=== PATIENT | male | born 1950 | race Caucasian/White ===

== ENCOUNTER 2017-04-30 10:02 | Day surgery (SDC) | payer MEDICARE ==
[~2017-04-30] VITALS: Ht 172.7 cm; Wt 70.5 kg
[~2017-04-30 10:02] MED LIST: SODIUM CHLOR 0.9% 1000 ML IV SCH
[2017-04-30 10:25] VITALS: BP 129/74; PULSE 90; RESP 18; TEMP 98.3; O2SAT 91
[2017-04-30] MEDS ORDERED: UMEC1AER INH (10:38)
[2017-04-30] MEDS ORDERED: VENTAER INH (10:38)
[2017-04-30] MEDS ORDERED: OXYC1TAB63 PO (10:38)
[2017-04-30] MEDS ORDERED: AMIT50TA3 PO (10:38)
[2017-04-30] MEDS ORDERED: MORP1TAB24 PO (10:38)
[2017-04-30] MEDS ORDERED: DEXA4TAB PO (10:38)
[2017-04-30] MEDS ORDERED: OXYC-395 PO (10:38)
[2017-04-30] MEDS ORDERED: LIDOCAINE 1%/EPINEPHrine 1:100,000 SOLN 20 ML VIAL ONE (12:02)
[2017-04-30] MEDS ORDERED: fentaNYL CITRATE 250 MCG/5 ML AMP ONE (12:09)
[2017-04-30] MEDS ORDERED: MIDAZOLAM HCL 2 MG/2 ML VIAL ONE (12:09)
[2017-04-30 12:40] VITALS: BP 97/50; PULSE 63; RESP 18; TEMP 97.7; O2SAT 91
[2017-04-30 12:55] VITALS: BP 107/58; PULSE 84; RESP 18; O2SAT 97
[2017-04-30 13:25] VITALS: BP 124/65; PULSE 16; RESP 20; O2SAT 96
[2017-04-30 13:55] VITALS: BP 122/75; PULSE 96; RESP 18; O2SAT 95
[2017-04-30 14:25] VITALS: BP 116/58; PULSE 102; RESP 20; O2SAT 92
--- NOTE | 2017-04-30 14:29 | RADRPT ---
EXAM DATE/TIME: 04/30/2017 12:16 [facility] COMPARISON: No previous studies available for comparison. INDICATIONS : Thoracic spine mass. SEDATION TIME: 20 minutes BIOPSY SITE: Thoracic spine MEDICATION(S): 1.) 2.5 mg midazolam (Versed) IV 2.) 125 mcg fentanyl (Sublimaze) IV DEVICE(S): 1.) 18 gauge BioPince needle MEDICAL HISTORY : Chronic obstructive pulmonary disease. SURGICAL HISTORY : None. ENCOUNTER: Initial ACUITY: 1 day PAIN SCORE: 0/10 LOCATION: upper back A total of one core specimen(s) were obtained and sent to the laboratory for pathologic evaluation. PROCEDURE: 1. CT guided bone deep biopsy. 2. Conscious sedation with continuous EKG and oximetry monitoring. 3. EKG and oximetry remained stable throughout the procedure. Prior to the procedure informed consent was obtained. Any appropriate prior imaging studies were rev iewed. Using automated exposure control and adjustment of the mA and/or kV according to patient size, radiat ion dose was kept as low as reasonably achievable to obtain optimal diagnostic quality images. DICOM format image data is available electronically for review and comparison. The site was prepped in a sterile fashion. Full sterile technique was used, including cap, mask, delfin rile gloves and gown and a large sterile sheet. Hand hygiene and 2% chlorhexidine and/or betadine/al cohol prep was utilized per protocol for cutaneous antisepsis. The skin and subcutaneous tissues wer e infiltrated with local anesthetic solution. Under CT guidance 18 gauge core was obtained from the metastatic deposit and submitted for pathologic evaluation. Follow-up CT scan reveals no hemorrhage. The patient tolerated the procedure well and there were no complications. The patient was returned to the Radiology Outpatient Unit in stable condition. CONCLUSION: Uncomplicated CT guided biopsy. Preliminary pathology interpretation is a cellular specimen. Mychal Skinner MD FACR on April 30, 2017 at 14:26 Board Certified Radiologist. This report was verified electronically.
== END 2017-04-30 14:35 | disposition home or self-care (01) ==
LOC: HRAD 10:02 → HRIP 10:03 → HRAD 14:35
PROVIDERS: ATTEND Internal Medicine Hematology & Oncology
DX: C79.51 Secondary malignant neoplasm of bone (principal); C80.1 Malignant (primary) neoplasm, unspecified; J44.9 Chronic obstructive pulmonary disease, unspecified
CPT/HCPCS: 20225; 77012; 88307; 88333; 88341; 88342; 99152; 99153; J2250; J3010; J7030; 88305

== ENCOUNTER 2017-05-12 06:17 | Day surgery (SDC) | payer MEDICARE ==
[~2017-05-12] VITALS: Ht 170.2 cm; Wt 70.5 kg
[~2017-05-12 06:17] MED LIST changes: +AMIT50TA3 PO; +DEXA4TAB PO; +MORP1TAB24 PO; +OXYC-395 PO; +OXYC1TAB63 PO; -SODIUM CHLOR 0.9% 1000 ML IV SCH; +UMEC1AER INH; +VENTAER INH
[2017-05-12 06:41] VITALS: BP 124/60; PULSE 116; RESP 24; TEMP 98.1; O2SAT 90
[2017-05-12] MEDS ORDERED: POVIDONE IODINE 5% (ANTISEPSIS KIT) 4 APPLICATIONS EACH NARE SCH (07:30)
[2017-05-12] MEDS ORDERED: VANCOMYCIN 1000 MG/NS 250 ML - implanted port/tunneled catheter IV SCH ×2 (07:30)
[2017-05-12] MEDS ORDERED: CHLORHEXIDINE GLUCONATE 2 % 1 PACK (2 CLOTHS) TOPICAL SCH (07:30)
[2017-05-12] MEDS ORDERED: SODIUM CHLORIDE 0.9% 1000 ML IV SCH (07:30)
[2017-05-12] MEDS: ceFAZolin 2 GM PREMIX 50 ML - implanted port/tunneled catheter insertion IV SCH ×2 (07:45→08:55)
[2017-05-12] MEDS ORDERED: fentaNYL CITRATE 250 MCG/5 ML AMP ONE (08:01)
[2017-05-12] MEDS ORDERED: MIDAZOLAM HCL 2 MG/2 ML VIAL ONE ×2 (08:07→08:43)
[2017-05-12] MEDS ORDERED: LIDOCAINE 1%/EPINEPHrine 1:100,000 SOLN 20 ML VIAL ONE (08:28)
[2017-05-12] MEDS ORDERED: SODIUM CHLORIDE 0.9% FLUSH 10 ML FLUSH IVF PRN (09:15)
[2017-05-12 09:19] VITALS: BP 118/68; PULSE 101; RESP 19; TEMP 98.3; O2SAT 92
[2017-05-12 09:49] VITALS: BP 113/70; PULSE 92; RESP 18; O2SAT 94
--- NOTE | 2017-05-12 09:58 | PD.RAD ---
Post Procedure Progress Note Pre Procedure Diagnosis: (1) Lung cancer metastatic to bone Post Procedure Diagnosis: (1) Lung cancer metastatic to bone Procedure Date: May 12, 2017 Supervising Radiologist: Obdulio Choi Proceduralist/Assist: Eldon Irvin RT(R), RT Sasha(R)() Anesthesia: Local, Analgesia, Conscious Sedation Plan of Activity Patient to Unit: ROPU Patient Condition: Good See PACS Report for procedural detail/treatment Central Venous Access Device Procedure 1 Right Internal Jugular Infusaport Placement single lumen Romanian: 8 Obdulio Choi MD May 12, 2017 09:58
--- NOTE | 2017-05-12 10:02 | RADRPT ---
EXAM DATE/TIME: 05/12/2017 08:22 [facility] COMPARISON: No previous studies available for comparison. INDICATIONS : Patient presents with bone cancer in need of port placement for chemotherapy treatment. MEDICAL HISTORY : Bone cancer COPD SURGICAL HISTORY : N/A ENCOUNTER: Initial ACUITY: 3 months PAIN SCORE: 7/10 LOCATION: Lower back pain FLUORO TIME: 0.5 minutes IMAGE SERIES: 1 SEDATION TIME: 30 minutes ACCESS: Right internal jugular vein SEDATION: 1.) 2.5 mg midazolam (Versed) IV 2.) 150 mcg fentanyl (Sublimaze) IV Prophylactic antibiotics were administered with appropriate pre-procedure timing. Vancomycin within 2 hours of procedure, Ancef (or alternative) within 1 hour of procedure. DEVICE: 1. [address] Syrian single lumen Smart port CT w/vortex PROCEDURE : 1. Continuous pulse oximetry and EKG monitoring. 2. Intravenous conscious sedation. 3. Ultrasound guidance for venous access. 4. Fluoroscopic guided implantable central venous port placement. The patient was placed supine. The neck was prepped in sterile fashion. Full sterile technique was u sed, including cap, mask, sterile gloves and gown, and a large sterile sheet. Hand hygiene and 2% ch lorhexidine Betadine was utilized per protocol for cutaneous antisepsis with appropriate dry time for site. The skin and subcutaneous tissues were infiltrated with local anesthetic solution. Under direct ultrasound guidance, central venous access was accomplished in the targeted vessel. The ultrasound images depicting access guidance were stored and saved to PACS for permanent record. A s ubcutaneous pocket was created using blunt dissection. The port was introduced to the pocket. The c atheter tubing was fed through a subcutaneous tunnel to the venotomy site. The catheter tubing was c ut to a suitable length and then was introduced through a valved Peel-Away sheath and positioned with catheter tubing tip at the cavo-atrial junction level. The pocket incision was closed with subcutic ular Vicryl suture. Steri-Strips were applied. The port was flushed and locked with heparin solutio n per protocol. Sterile dressing was applied to the site. The patient tolerated the procedure well. Conscious sedation was performed with the prescribed dosages and duration as above in the presence of an independent trained radiology nurse to assist in the monitoring of the patient. EKG and oximetry remained stable throughout the procedure. The patient tolerated the procedure well and there were no complications. The patient was sent to post anesthesia recovery in stable condition. CONCLUSION: Uncomplicated ultrasound and fluoroscopic guided implanted central venous port catheter placement as described in detail above. An 8 Syrian Power port was placed. Obdulio Choi MD on May 12, 2017 at 10:00 Board Certified Radiologist. This report was verified electronically.
[2017-05-12 10:19] VITALS: BP 97/67; PULSE 88; RESP 17; O2SAT 96
[2017-05-12 11:19] VITALS: BP 106/58; PULSE 89; RESP 19; O2SAT 97
== END 2017-05-12 12:30 | disposition home or self-care (01) ==
LOC: HROP 06:17 → HRIP 06:24 → HROP 12:30
PROVIDERS: ATTEND Internal Medicine Hematology & Oncology
DX: C34.90 Malignant neoplasm of unspecified part of unspecified bronchus or lung (principal); C79.51 Secondary malignant neoplasm of bone
CPT/HCPCS: 36561; 76937; 77001; 99152; 99153; C1788; J0690; J1642; J2250; J3010; J3370; J7030; J7050

== ENCOUNTER 2017-05-26 11:11 | Inpatient (IN) | payer MEDICARE ==
[~2017-05-26] VITALS: Ht 172.7 cm; Wt 64.1 kg
[2017-05-26] VITALS (10 sets, daily range): BP systolic 109–134; BP diastolic 66–81; PULSE 98–130; RESP 16–20; TEMP 97.2–97.9; O2SAT 87–96
[~2017-05-26 11:11] MED LIST changes: -OXYC1TAB63 PO
[2017-05-26] MEDS ORDERED: SENN8.6T25 PO (11:41)
[2017-05-26] MEDS ORDERED: SODIUM CHLORIDE 0.9% FLUSH 5 ML FLUSH IV FLUSH PRN (11:45)
[2017-05-26] MEDS ORDERED: SODIUM CHLOR 0.9% 1000 ML INJ 1,000 ML IV ONE (11:45)
--- NOTE | 2017-05-26 11:48 | PD ---
HPI Chief Complaint: Altered Mental Status Time Seen by Provider: 11:32 Travel History International Travel<30 days: No Contact w/Intl Traveler<30days: No Traveled to known affect area: No History of Present Illness HPI 67-year-old male presents to the emergency department via EMS for altered mental status that started today. The patient is unable to provide much history. Patient has right lung mass with mediastinal adenopathy and diffuse bone lesion in the spine. He does have a [id number] smoking history. Patient is receiving irradiation to the thoracic spine. He states he is not currently receiving chemotherapy. His oncologist is Dr. Bingham. Apparently, he started this morning with altered mental status. He is complaining of back pain. Apparently, he has not been eating or drinking for several days as well. He also has a history of COPD according to previous notes. The patient is able to answer his name, he is at the hospital in the year. However, he takes a while to answer and appears to be confused. The patient is tachycardic on my exam. He denies any complaints to me, but does appear to be confused. His nephew arrived at bedside. He states that he is concerned that the cancer as needed or to screen his abdomen/pelvis. He states that he was leaning against the counter this morning for several hours with water coming out of his nose. He states that he has been declining over the past couple of weeks. He was to start chemotherapy today, but has not yet started it. PFSH Past Medical History Cancer: Yes Cardiovascular Problems: No COPD: Yes Diabetes: No Endocrine: No Genitourinary: No Hepatitis: No Hiatal Hernia: No Immune Disorder: No Musculoskeletal: Yes (mass on spine) Neurologic: No Psychiatric: No Reproductive: No Respiratory: Yes (copd) Thyroid Disease: No Tetanus Vaccination: Unknown Past Surgical History Abdominal Surgery: No AICD: No Cardiac Surgery: No Ear Surgery: No Endocrine Surgery: No Eye Surgery: No Genitourinary Surgery: No Gynecologic Surgery: No Joint Replacement: No Oral Surgery: No Pacemaker: No Thoracic Surgery: No Social History Alcohol Use: No Tobacco Use: Yes Substance Use: No Allergies-Medications (Allergen,Severity, Reaction): Coded Allergies: No Known Allergies (Unverified , 05/26/17) Reported Meds & Prescriptions Reported Meds & Active Scripts Active Reported Senna Laxative (Sennosides) 8.6 Mg Tab 17.2 Mg PO HS PRN Morphine ER (Morphine Sulfate) 15 Mg Tab 15 Mg PO Q12HR Oxycodone (Oxycodone HCl) 10 Mg Tab 10 Mg PO Q4H PRN Dexamethasone 4 Mg Tab 4 Mg PO DAILY Ventolin Hfa 18 GM Inh (Albuterol Sulfate) 90 Mcg/Act Aer 2 Puff INH Q4-6H PRN Anoro Ellipta Inh (Umeclidinium/Vilanterol) 62.5-25 Mcg/Act Aero 1 Puff INH DAILY Amitriptyline (Amitriptyline HCl) 50 Mg Tab 50 Mg PO HS Review of Systems Except as stated in HPI: all other systems reviewed are Neg Physical Exam Narrative GENERAL: Well-nourished, well-developed male patient, afebrile. SKIN: Focused skin assessment warm/dry. HEAD: Normocephalic. Atraumatic. EYES: No scleral icterus. No injection or drainage. NECK: Supple, trachea midline. No JVD or lymphadenopathy. CARDIOVASCULAR: Regular rhythm without murmurs, gallops, or rubs. Patient is tachycardic with heart rate in the 130s. RESPIRATORY: Breath sounds equal bilaterally. No accessory muscle use. Lungs sounds diminished. GASTROINTESTINAL: Abdomen soft, slightly distended. Patient grimaces to palpation. MUSCULOSKELETAL: No cyanosis, or edema. BACK: Nontender without obvious deformity. No CVA tenderness. Data Data Last Documented VS Vital Signs Date Time Temp Pulse Resp B/P (MAP) Pulse Ox O2 Delivery O2 Flow Rate FiO2 05/26/17 13:31 120 19 126/67 (86) 96 Nasal Cannula 4.00 05/26/17 11:17 97.9 Orders Orders Electrocardiogram (05/26/17 11:41) Complete Blood Count With Diff (05/26/17 11:41) Comprehensive Metabolic Panel (05/26/17 11:41) Creatine Kinase (Cpk) (05/26/17 11:41) Prothrombin Time / Inr (Pt) (05/26/17 11:41) Act Partial Throm Time (Ptt) (05/26/17 11:41) Troponin I (05/26/17 11:41) Urinalysis - C+S If Indicated (05/26/17 11:41) Lactic Acid Sepsis Protocol (05/26/17 11:41) Blood Culture (05/26/17 11:41) Chest, Single Ap (05/26/17 11:41) Ct Brain W/O Iv Contrast(Rout) (05/26/17 11:41) Blood Glucose (05/26/17 11:41) Ecg Monitoring (05/26/17 11:41) Iv Access Insert/Monitor (05/26/17 11:41) Oximetry (05/26/17 11:41) Sodium Chloride 0.9% Flush (Ns Flush) (05/26/17 11:45) Ct Pulmonary Angiogram (05/26/17 ) Magnesium (Mg) (05/26/17 11:41) Sodium Chlor 0.9% 1000 Ml Inj (Ns 1000 M (05/26/17 11:45) Albuterol-Ipratropium Neb (Duoneb Neb) (05/26/17 11:45) Ct Abd/Pel W Iv Contrast(Rout) (05/26/17 ) CKMB (05/26/17 12:15) CKMB% (05/26/17 12:15) Cath For Specimen (05/26/17 13:01) Iohexol 350 Inj (Omnipaque 350 Inj) (05/26/17 13:38) Admit Order (Ed Use Only) (05/26/17 14:00) Labs Laboratory Tests Test 05/26/17 12:15 05/26/17 13:55 White Blood Count 12.3 TH/MM3 Red Blood Count 4.75 MIL/MM3 Hemoglobin 12.7 GM/DL Hematocrit 39.8 % Mean Corpuscular Volume 83.8 FL Mean Corpuscular Hemoglobin 26.8 PG Mean Corpuscular Hemoglobin Concent 32.0 % Red Cell Distribution Width 16.5 % Platelet Count 304 TH/MM3 Mean Platelet Volume 6.7 FL Neutrophils (%) (Auto) 93.7 % Lymphocytes (%) (Auto) 0.8 % Monocytes (%) (Auto) 5.3 % Eosinophils (%) (Auto) 0.1 % Basophils (%) (Auto) 0.1 % Neutrophils # (Auto) 11.5 TH/MM3 Lymphocytes # (Auto) 0.1 TH/MM3 Monocytes # (Auto) 0.7 TH/MM3 Eosinophils # (Auto) 0.0 TH/MM3 Basophils # (Auto) 0.0 TH/MM3 CBC Comment DIFF FINAL Differential Comment Prothrombin Time 12.1 SEC Prothromb Time International Ratio 1.1 RATIO Activated Partial Thromboplast Time 29.0 SEC Blood Urea Nitrogen 43 MG/DL Creatinine 1.02 MG/DL Random Glucose 108 MG/DL Total Protein 7.4 GM/DL Albumin 2.5 GM/DL Calcium Level 10.1 MG/DL Magnesium Level 2.3 MG/DL Alkaline Phosphatase 126 U/L Aspartate Amino Transf (AST/SGOT) 61 U/L Alanine Aminotransferase (ALT/SGPT) 22 U/L Total Bilirubin 0.5 MG/DL Sodium Level 133 MEQ/L Potassium Level 4.4 MEQ/L Chloride Level 97 MEQ/L Carbon Dioxide Level 23.0 MEQ/L Anion Gap 13 MEQ/L Estimat Glomerular Filtration Rate 73 ML/MIN Lactic Acid Level 1.3 mmol/L Total Creatine Kinase 837 U/L Creatine Kinase MB 7.5 NG/ML Creatine Kinase MB % 0.9 % Troponin I LESS THAN 0.02 NG/ML MDM Medical Decision Making Medical Screen Exam Complete: Yes Emergency Medical Condition: Yes Medical Record Reviewed: Yes Interpretation(s) chest x-ray - CONCLUSION: 1. Mild bibasilar atelectatic changes, right worse than left. 2. Right IJ Uofopv-e-Oyhz with the tip projecting over the central venous system. Ct brain CONCLUSION: 1. Il-defined 10 mm region of increased density along the medial right occipital mid convexities. Suspect intra-axial lesion rather than focal subarachnoid blood products. No significant mass effect or associated edema by CT. This is concerning for metastatic disease in this patient with history of lung CA. Recommend MRI examination for further characterization. 2. Left maxillary and ethmoid sinusitis. Ct pulmonary angiogram CONCLUSION: 1. Right upper lobe spiculated mass, mediastinal and hilar adenopathy, and upper abdominal lymphadenopathy. 2. Right adrenal nodule suspicious for metastatic disease. 3. Diffuse osseous metastatic disease with destructive bony changes and spinal canal involvement with soft tissue extending into the epidural space at several levels. Ct abdomen/pelvis CONCLUSION: 1. Osseous metastatic disease with areas of cortical destruction and epidural extension as above. 2. Lateral adrenal nodules are suspicious for metastatic disease. 3. Bulky retroperitoneal and upper abdominal, and mesenteric adenopathy with a central irregular mesenteric mass involving the uncinate process of the pancreas and third portion of the duodenum. 4. Not mentioned above is focal clot in the right common iliac vein just proximal to the venous confluence on image 42. Differential Diagnosis Electrolytes abnormality versus dehydration versus intracranial abnormality versus pulmonary embolism versus COPD exacerbation versus UTI versus sepsis versus overmedication Narrative Course 67-year-old male presents to the emergency department via EMS for altered mental status. He has stage IV cancer with diffuse bone lesions in the spine. EKG, CBC, CMP, magnesium, CK, troponin, lactic acid, PTT, PT/INR, blood cultures 2, UA are ordered and pending. Chest x-ray, CT of the brain, CT pulmonary angiogram are ordered and pending. Patient is given normal saline 1 Laureen bolus, DuoNeb 2. EKG shows sinus tachycardia, no acute ST changes. CBC shows leukocytosis 12.3, neutrophilia 93.7. CMP shows slight hyponatremia 133, BUN 43, glucose 108, AST 61, alkaline phosphatase 126. CK is 837. Troponin is less than 0.02. Lactic acid is 1.3. Magnesium is 2.3. Coags show no acute abnormality. UA [-]. Chest x-ray shows 1. Mild bibasilar atelectatic changes, right worse than left. 2. Right IJ Gmtedl-x-Ndqg with the tip projecting over the central venous system. CT of the brain shows an ill-defined 10 mm region of increased density along the medial right occipital make These, concerning for metastatic disease. CT PA shows right upper lobe mass, metastatic renal and hilar adenopathy, right adrenal nodule suspicious for metastatic disease, diffuse osseous metastatic disease with destructive bony changes and spinal canal involvement with soft tissue extending into the epidural space at several levels. CT the abdomen/pelvis shows osseous metastatic disease with areas of cortical destruction epidural extension, lateral adrenal nodules, suspicious for metastatic disease, bulky retroperitoneal upper abdominal and mesenteric adenopathy with essential irregular mesenteric mass involving the healing process of the pancreas and third portion of the duodenum, focal clot in the right common iliac vein. I discussed these findings with Dr. Hale who accepted admission. Diagnosis Primary Impression: Altered mental status Qualified Codes: R41.82 - Altered mental status, unspecified Additional Impressions: Metastatic lung carcinoma Qualified Codes: C78.00 - Secondary malignant neoplasm of unspecified lung Iliac vein thrombosis Qualified Codes: I82.421 - Acute embolism and thrombosis of right iliac vein Admitting Information Admitting Physician Requests: Admit Virginia Juarez May 26, 2017 11:48
[2017-05-26] MEDS: RESP: ALBUTEROL 2.5 MG/IPRATROPIUM 0.5 MG NEB (SCH) INH (12:09)
[2017-05-26 12:31] LABS: AUTOMATED NEUTROPHIL # 11.5 TH/MM3 (1.8-7.7); BASOPHIL % 0.1 % (0.0-2.0); EOSINOPHIL % 0.1 % (0.0-4.0); HEMATOCRIT 39.8 % (39.0-51.0); HEMO FLAGS DIFF FINAL; LYMPH % 0.8 % (9.0-44.0); LYMPHOCYTE # 0.1 TH/MM3 (1.0-4.8); MEAN CELL VOLUME 83.8 FL (80.0-100.0); MEAN CORPUSCULAR HEMOGLOBIN 26.8 PG (27.0-34.0); MONO % 5.3 % (0.0-8.0); NEUT % 93.7 % (16.0-70.0); PLATELET COUNT 304 TH/MM3 (150-450); RED BLOOD COUNT 4.75 MIL/MM3 (4.50-5.90); RED CELL DISTRIBUTION WIDTH 16.5 % (11.6-17.2); WHITE BLOOD COUNT 12.3 TH/MM3 (4.0-11.0)
[2017-05-26 12:46] LABS: INTERNATIONAL NORMALIZED RATIO 1.1 RATIO; PROTHROMBIN TIME - PATIENT 12.1 SEC (9.8-11.6)
[2017-05-26 12:54] LABS: ANION GAP 13 MEQ/L (5-15); AST (GOT) 61 U/L (15-37); BLOOD UREA NITROGEN 43 MG/DL (7-18); CHLORIDE 97 MEQ/L (98-107); GLOMERULAR FILTRATION RATE 73 ML/MIN (>89); MAGNESIUM 2.3 MG/DL (1.5-2.5); POTASSIUM 4.4 MEQ/L (3.5-5.1); SODIUM (NA) 133 MEQ/L (136-145)
--- NOTE | 2017-05-26 12:54 | RADRPT ---
EXAM DATE/TIME: 05/26/2017 12:04 [facility] COMPARISON: [id number] PLCMT, POWERPORT, W US, RIGHT, May 12, 2017, 8:22. CT NEEDLE BIOPSY BONE DEEP, April 30, 2017, 12:16. INDICATIONS : Shortness of breath. MEDICAL HISTORY : Chronic obstructive pulmonary disease. Bone cancer SURGICAL HISTORY : Infusaport ENCOUNTER: Initial ACUITY: 1 day PAIN SCORE: 0/10 LOCATION: Bilateral chest FINDINGS: A single view of the chest demonstrates the lungs to be symmetrically aerated with bibasilar atelecta tic changes. Heart size is normal. Right IJ Rwvcrw-g-Vhxd catheter projecting over the central venous system. CONCLUSION: 1. Mild bibasilar atelectatic changes, right worse than left. 2. Right IJ Bqavqm-i-Wdct with the tip projecting over the central venous system. Obdulio Choi MD on May 26, 2017 at 12:48 Board Certified Radiologist. This report was verified electronically.
[2017-05-26 12:55] LABS: ALT (GPT) 22 U/L (12-78)
[2017-05-26 12:59] LABS: ALKALINE PHOSPHATASE 126 U/L (45-117); CREATINE KINASE 837 U/L (39-308); TOTAL BILIRUBIN ADULT 0.5 MG/DL (0.2-1.0)
[2017-05-26 13:13] LABS: CKMB 7.5 NG/ML (0.5-3.6)
[2017-05-26] MEDS ORDERED: IOHEXOL 350 MG/ML 10 ML VIAL (for RAD DIAG) IVCONTRAST ONE (13:38)
--- NOTE | 2017-05-26 13:41 | RADRPT ---
EXAM DATE/TIME: 05/26/2017 13:18 [facility] COMPARISON: No previous studies available for comparison. INDICATIONS : Altered mental status RADIATION DOSE: 69.26 CTDIvol (mGy) MEDICAL HISTORY : Chronic obstructive pulmonary disease. Carcinoma, lung. SURGICAL HISTORY : None. ENCOUNTER: Initial ACUITY: 1 day PAIN SCALE: 0/10 LOCATION: cranial TECHNIQUE: Multiple contiguous axial images were obtained of the head. Using automated exposure control and adj ustment of the mA and/or kV according to patient size, radiation dose was kept as low as reasonably a chievable to obtain optimal diagnostic quality images. DICOM format image data is available electro nically for review and comparison. FINDINGS: CEREBRUM: Subtle ill-defined increased density along the medial right occipital mid convexities. Suspect an int ra-axial lesion. This lesion measures approximately 10 x 9 mm. No significant perilesional white corie er changes or significant mass effect. There is mild diffuse cerebral atrophy. The ventricles are nor mal for degree of atrophy. No evidence of midline shift, mass lesion, hemorrhage or acute infarction . No extra-axial fluid collections are seen. POSTERIOR FOSSA: The cerebellum and brainstem are intact. The 4th ventricle is midline. The cerebellopontine angle i s unremarkable. EXTRACRANIAL: The visualized portion of the orbits is intact. Air-fluid level in the left x-ray sinus. Nuchal Pross er thickening involving the left ethmoid air cells. SKULL: The calvaria is intact. No evidence of skull fracture. CONCLUSION: 1. Il-defined 10 mm region of increased density along the medial right occipital mid convexities. Ceci pect intra-axial lesion rather than focal subarachnoid blood products. No significant mass effect or associated edema by CT. This is concerning for metastatic disease in this patient with history of sherrie g CA. Recommend MRI examination for further characterization. 2. Left maxillary and ethmoid sinusitis. Kevin Boss MD on May 26, 2017 at 13:31 Board Certified Radiologist. This report was verified electronically.
--- NOTE | 2017-05-26 14:02 | RADRPT ---
EXAM DATE/TIME: 05/26/2017 13:24 [facility] COMPARISON: No previous studies available for comparison. INDICATIONS : Lung cancer with back pain, dypsnea IV CONTRAST: 73 cc Omnipaque 350 (iohexol) IV ; Cumulative dose for multiple exams. RADIATION DOSE: 12.88 CTDIvol (mGy) MEDICAL HISTORY : Carcinoma, lung. Chronic obstructive pulmonary disease. SURGICAL HISTORY : None. ENCOUNTER: Initial ACUITY: 1 day PAIN SCALE: 7/10 LOCATION: back TECHNIQUE: Volumetric scanning of the chest was performed using a pulmonary embolism protocol MIP images were re constructed. Using automated exposure control and adjustment of the mA and/or kV according to patien t size, radiation dose was kept as low as reasonably achievable to obtain optimal diagnostic quality images. DICOM format image data is available electronically for review and comparison. Follow-up recommendations for detected pulmonary nodules are based at a minimum on nodule size and pa tient risk factors according to Fleischner Society Guidelines. FINDINGS: There is patchy consolidation and atelectasis in the lingula, right middle lobe atelectasis and left lower lobe atelectasis. There is a spiculated mass in the right upper lobe on image 35 consistent wit h the patient's known lung cancer. It measures 2.6 x 2.5 cm. There is adenopathy in the mediastinum w ith a right paratracheal 1.8 cm short axis node, AP window nodes measure 1.2 cm, subcarinal 1 cm shor t axis node, right hilar adenopathy up to 1.7 cm. There are multiple enlarged lymph nodes in the uppe r abdomen as well the gastrohepatic ligament and clint hepatic and mesenteric regions as well as the retroperitoneum with prominent adenopathy identified measuring up to 6 cm in short axis dimension. Th ere is a right adrenal mass measuring 1.5 m. There is no evidence for pulmonary embolism. Coronary ar lee ann calcification is noted and patchy areas of atelectasis and consolidation. Osseous structures dem onstrate multiple lytic lesions throughout the spine with disc and bony changes. For example a tiny s clerotic lesion in T11 vertebral body, lytic lesion at T10 vertebral body, an expansile destructive l esion at T9 vertebral body and left pedicle breaching the posterior cortex and encroaching upon the s dipika canal. There is also a lytic lesion involving the T8 vertebral body, destructive lesion with pa thologic fracture at T6 vertebral body and right pedicle and transverse process with encroachment on the spinal canal, lytic lesion posterior aspect of the T4 vertebral body. CONCLUSION: 1. Right upper lobe spiculated mass, mediastinal and hilar adenopathy, and upper abdominal lymphadeno ilya. 2. Right adrenal nodule suspicious for metastatic disease. 3. Diffuse osseous metastatic disease with destructive bony changes and spinal canal involvement with soft tissue extending into the epidural space at several levels. John Chen MD on May 26, 2017 at 13:55 Board Certified Radiologist. This report was verified electronically.
--- NOTE | 2017-05-26 14:08 | RADRPT ---
EXAM DATE/TIME: 05/26/2017 13:28 [place] COMPARISON: CT PULMONARY ANGIOGRAM, May 26, 2017, 13:24. INDICATIONS : Back pain, patient has lung cancer IV CONTRAST: 73 cc Omnipaque 350 (iohexol) IV ; Cumulative dose for multiple exams. ORAL CONTRAST: No oral contrast ingested. RADIATION DOSE: 15.86 CTDIvol (mGy) MEDICAL HISTORY : Chronic obstructive pulmonary disease. Carcinoma, lung. SURGICAL HISTORY : None. ENCOUNTER: Initial ACUITY: 1 day PAIN SCALE: 5/10 LOCATION: back TECHNIQUE: Volumetric scanning of the abdomen and pelvis was performed. Using automated exposure control and ad justment of the mA and/or kV according to patient size, radiation dose was kept as low as reasonably achievable to obtain optimal diagnostic quality images. DICOM format image data is available electro nically for review and comparison. FINDINGS: There is patchy atelectasis at the left lung base, minimal linear atelectasis right middle lobe and r ight lower lobe. Calcified granulomas in the spleen are present. No pleural or pericardial effusions. There is extensive upper abdominal lymphadenopathy identified including periportal adenopathy and ga strohepatic adenopathy measuring up to 1.4 cm in short axis dimension in the gastrohepatic region, 1. 2 cm portacaval adenopathy, and retroperitoneal lymphadenopathy measuring up to 1.6 cm and the left p elliott-aortic region. There is adenopathy in the mesentery and a irregular soft tissue mass seen in the central small bowel mesentery measuring 9.3 x 5.3 cm in transverse and AP dimension. Part of this mas s involves the anterior wall of the duodenum and abuts the inferior margin of the uncinate process of the pancreas. Urinary bladder is unremarkable. Prostatic calcifications are seen. The gallbladder, l iver are unremarkable. There is a nodule of the left adrenal gland is present measuring 1.6 cm. Also noted is a right adrenal mass measuring 2 cm suspicious for metastatic disease. Diverticulosis is see n within the colon without definite diverticulitis. Stomach small bowel and appendix are otherwise un remarkable. Review of bone windows demonstrate destructive osseous lesion involving T10 with a lytic lesion in the vertebral body, a tiny sclerotic T11 vertebral body lesion, subtle lytic lesion of L1 v ertebral body, expansile destructive lesion involving the posterior elements of L2 with breech of the posterior cortex and tumor in the epidural space demonstrating mass effect on the spinal canal best seen on axial image 25. There is also a destructive lytic lesion extending laterally from the vertebr al body at L4. There is a lytic lesion with soft tissue involving the right iliac bone, and destructi ve bilateral sacral alar fractures, lucent lesion right femoral head and left femoral head anteriorly . CONCLUSION: 1. Osseous metastatic disease with areas of cortical destruction and epidural extension as above. 2. Lateral adrenal nodules are suspicious for metastatic disease. 3. Bulky retroperitoneal and upper abdominal, and mesenteric adenopathy with a central irregular mese nteric mass involving the uncinate process of the pancreas and third portion of the duodenum. 4. Not mentioned above is focal clot in the right common iliac vein just proximal to the venous confl uence on image 42. John Chen MD on May 26, 2017 at 14:01 Board Certified Radiologist. This report was verified electronically.
[2017-05-26 14:25] LABS: BLOOD, URINE NEG (NEG); COMMENT (UR) CATH-CULT NOT IND; CULTURE IF INDICATED CATH CULTURE NOT IND; GLUCOSE,URINE NEG (NEG); HYALINE CAST, URINE 5 /lpf (RARE); KETONE, URINE 10 mg/dL (NEG); MUCUS URINE FEW /lpf (OCC); NITRITE,URINE NEG (NEG); URINE COLOR YELLOW (YELLW/STRAW)
--- NOTE | 2017-05-26 14:26 | HHI.HP ---
HPI Service [facility] Hospitalists Primary Care Physician Lyle Angeles D.O. Admission Diagnosis AMS, lung CA with metastatic disease to brain Chief Complaint: AMS, worsening metastatic cancer Travel History International Travel<30 Days: No Contact w/Intl Traveler <30 Da: No Traveled to Known Affected Are: No History of Present Illness Mr. Pierce is a 67 y/o WM who was recently diagnosed with metastatic invasive adenocarcinoma favoring lung primary. Pt has been undergoing XRT therapy but has not yet been started on chemotherapy. He follows with Dr. Bingham. Pt was brought into the ED today by family for altered mental status. I spoke with the pts nephew, Cathy, who has been taking care of him for the last several months and he reports that for the last 4 days the pt has been increasingly confused, falling at home and has not been eating or drinking. The pts family also reports that the patient has had shaking chills as well. He has reportedly not been eating or drinking at all for the last 4 days. The patient is unable to provide much meaningful history. He has port in the right chest which appears to have been placed recently. No reported fevers or chills. He is tachycardic with a slightly elevated WBC count at admission of 12.3. No fevers so far in the ED. Pt had a Head CT in the ED which revealed an ill-defined 10 mm region of increased density along the medial right occipital mid convexities, suspect intra-axial lesion rather than focal subarachnoid blood products without significant mass effect or associated edema by CT. This is concerning for metastatic disease in this patient with history of lung CA. CT Abd/pelvis noted osseous metastatic disease with areas of cortical destruction and epidural extension, lateral adrenal nodules are suspicious for metastatic disease, bulky retroperitoneal and upper abdominal, and mesenteric adenopathy with a central irregular mesenteric mass involving the uncinate process of the pancreas and third portion of the duodenum. Per the review of previous records, pt started having back pain about 5-6 months ago but he had no insurance. He recently established with [facility] and was seen by Dr. Angeles and was sent for a CT lung which showed 2.6 cm spiculated mass in the right upper lobe with mediastinal adenopathy, multiple lytic bone lesions within the thoracic and upper lumbar spine. The largest measured 2.6 cm within the T9 vertebral body. The lesion appeared to have extended into the spinal canal. There was also suspected lesion T4, T6, T7, T8, T9, L1. There was another lytic lesion in the left scapula. Pt was seen by Dr. Bingham. PET Scan noted a RUL hypermetabolic mass with multiple mediastinal and right hilar adenopathy. There was also hypermetabolic adenopathy in the upper abdomen and mesentery and possible right adrenal metastasis. He was started on palliative XRT and had been planned for aplliative chemo with Avastin, carboplatin, and Taxol after radiation. Review of Systems ROS Limitations: Clinical Condition, Altered Mental Status, Poor Historian Constitutional: COMPLAINS OF: Change in appetite, DENIES: Fever, Chills Respiratory: COMPLAINS OF: Cough, DENIES: Shortness of breath Cardiovascular: DENIES: Chest pain Gastrointestinal: DENIES: Abdominal pain, Diarrhea, Nausea, Vomiting Psychiatric: COMPLAINS OF: Confusion Past Family Social History Past Medical History Metastatic adenocarcinoma, felt to be lung primary on XRT Chronic Obstructive Pulmonary Disease Tobacco abuse Past Surgical History [id number] in right chest wall Reported Medications Senna Laxative (Sennosides) 8.6 Mg Tab 17.2 Mg PO HS PRN Morphine ER (Morphine Sulfate) 15 Mg Tab 15 Mg PO Q12HR Oxycodone (Oxycodone HCl) 10 Mg Tab 10 Mg PO Q4H PRN Dexamethasone 4 Mg Tab 4 Mg PO DAILY Ventolin Hfa 18 GM Inh (Albuterol Sulfate) 90 Mcg/Act Aer 2 Puff INH Q4-6H PRN Anoro Ellipta Inh (Umeclidinium/Vilanterol) 62.5-25 Mcg/Act Aero 1 Puff INH DAILY Amitriptyline (Amitriptyline HCl) 50 Mg Tab 50 Mg PO HS Allergies: Coded Allergies: No Known Allergies (Unverified , 05/26/17) Family History Unobtainable Social History (+)tobacco abuse, 50 pack year history, pt is still reportedly smoking (+)Occasional alcohol use reported No reported illicit drug use Physical Exam Vital Signs Vital Signs Date Time Temp Pulse Resp B/P (MAP) Pulse Ox O2 Delivery O2 Flow Rate FiO2 05/26/17 13:31 120 19 126/67 (86) 96 Nasal Cannula 4.00 05/26/17 11:31 87 Room Air 05/26/17 11:31 Nasal Cannula 4.00 05/26/17 11:17 97.9 130 19 109/66 (80) 93 Physical Exam GENERAL: This is a well-nourished, well-developed patient, in no apparent distress. HEENT: Atraumatic. Normocephalic. No temporal or scalp tenderness. No scleral icterus. Airway patent. NECK: Trachea midline, supple, nontender. CARDIO: Regular, tachy. RESP: Coarse breath sounds bilaterally. Poor inspiratory effort. Port in right chest wall, steri-strips in place. ABD: +BS, soft, non-tender, nondistended. EXT: Extremities without clubbing, cyanosis, or edema. NEURO: Awake and alert. Slow to respond to questions. Moves all 4 extremities without difficulty. Normal speech. Laboratory Laboratory Tests Test 05/26/17 12:15 05/26/17 13:55 White Blood Count 12.3 Red Blood Count 4.75 Hemoglobin 12.7 Hematocrit 39.8 Mean Corpuscular Volume 83.8 Mean Corpuscular Hemoglobin 26.8 Mean Corpuscular Hemoglobin Concent 32.0 Red Cell Distribution Width 16.5 Platelet Count 304 Mean Platelet Volume 6.7 Neutrophils (%) (Auto) 93.7 Lymphocytes (%) (Auto) 0.8 Monocytes (%) (Auto) 5.3 Eosinophils (%) (Auto) 0.1 Basophils (%) (Auto) 0.1 Neutrophils # (Auto) 11.5 Lymphocytes # (Auto) 0.1 Monocytes # (Auto) 0.7 Eosinophils # (Auto) 0.0 Basophils # (Auto) 0.0 CBC Comment DIFF FINAL Differential Comment Prothrombin Time 12.1 Prothromb Time International Ratio 1.1 Activated Partial Thromboplast Time 29.0 Blood Urea Nitrogen 43 Creatinine 1.02 Random Glucose 108 Total Protein 7.4 Albumin 2.5 Calcium Level 10.1 Magnesium Level 2.3 Alkaline Phosphatase 126 Aspartate Amino Transf (AST/SGOT) 61 Alanine Aminotransferase (ALT/SGPT) 22 Total Bilirubin 0.5 Sodium Level 133 Potassium Level 4.4 Chloride Level 97 Carbon Dioxide Level 23.0 Anion Gap 13 Estimat Glomerular Filtration Rate 73 Lactic Acid Level 1.3 Total Creatine Kinase 837 Creatine Kinase MB 7.5 Creatine Kinase MB % 0.9 Troponin I LESS THAN 0.02 Date/Time Source Procedure Growth Status 05/26/17 12:15 Blood Peripheral Aerobic Blood Culture Pending Received 05/26/17 12:15 Blood Peripheral Anaerobic Blood Culture Pending Received Result Diagram: 05/26/17 1215 05/26/17 1215 Imaging Last Impressions Head CT 05/26/17 1141 Signed Impressions: Service Date/Time: Friday, May 26, 2017 13:18 - CONCLUSION: 1. Il-defined 10 mm region of increased density along the medial right occipital mid convexities. Suspect intra-axial lesion rather than focal subarachnoid blood products. No significant mass effect or associated edema by CT. This is concerning for metastatic disease in this patient with history of lung CA. Recommend MRI examination for further characterization. 2. Left maxillary and ethmoid sinusitis. Kevin Boss MD Chest X-Ray 05/26/17 1141 Signed Impressions: Service Date/Time: Wednesday, May 26, 2017 12:04 - CONCLUSION: 1. Mild bibasilar atelectatic changes, right worse than left. 2. Right IJ Infuse-a- Port with the tip projecting over the central venous system. Obdulio Choi MD CT Angiography 05/26/17 0000 Signed Impressions: Service Date/Time: Wednesday, May 26, 2017 13:24 - CONCLUSION: 1. Right upper lobe spiculated mass, mediastinal and hilar adenopathy, and upper abdominal lymphadenopathy. 2. Right adrenal nodule suspicious for metastatic disease. 3. Diffuse osseous metastatic disease with destructive bony changes and spinal canal involvement with soft tissue extending into the epidural space at several levels. John Chen MD Abdomen/Pelvis CT 05/26/17 0000 Signed Impressions: Service Date/Time: Friday, May 26, 2017 13:28 - CONCLUSION: 1. Osseous metastatic disease with areas of cortical destruction and epidural extension as above. 2. Lateral adrenal nodules are suspicious for metastatic disease. 3. Bulky retroperitoneal and upper abdominal, and mesenteric adenopathy with a central irregular mesenteric mass involving the uncinate process of the pancreas and third portion of the duodenum. 4. Not mentioned above is focal clot in the right common iliac vein just proximal to the venous confluence on image 42. John Chen MD Septic Shock Reassessment Heart: Other Lungs: Course Skin: Warm Caprini VTE Risk Assessment Caprini VTE Risk Assessment: Mod/High Risk (score >= 2) Caprini Risk Assessment Model Point Value = 1 Point Value = 2 Point Value = 3 Point Value = 5 Age 41-60 Minor surgery BMI > 25 kg/m2 Swollen legs Varicose veins or History of unexplained or recurrent spontaneous Oral contraceptives or hormone replacement Sepsis (< 1 month) Serious lung disease, including pneumonia (< 1 month) Abnormal pulmonary function Acute myocardial infarction Congestive heart failure (< 1 month) History of inflammatory bowel disease Medical patient at bed rest Age 61-74 Arthroscopic surgery Major open surgery (> 45 min) Laparoscopic surgery (> 45 min) Malignancy Confined to bed (> 72 hours) Immobilizing plaster cast Central venous access Age >= 75 History of VTE Family history of VTE Factor V Leiden Prothrombin [id number] Lupus anticoagulant Anticardiolipin antibodies Elevated serum homocysteine Heparin-induced thrombocytopenia Other congenital or acquired thrombophilia Stroke (< 1 month) Elective arthroplasty Hip, pelvis, or leg fracture Acute spinal cord injury (< 1 month) Prophylaxis Regimen Total Risk Factor Score Risk Level Prophylaxis Regimen 0-1 Low Early ambulation 2 Moderate Order ONE of the following: *Sequential Compression Device (SCD) *Heparin 5000 units SQ BID 3-4 Higher Order ONE of the following medications: *Heparin 5000 units SQ TID *Enoxaparin/Lovenox 40 mg SQ daily (WT < 150 kg, CrCl > 30 mL/min) *Enoxaparin/Lovenox 30 mg SQ daily (WT < 150 kg, CrCl > 10-29 mL/min) *Enoxaparin/Lovenox 30 mg SQ BID (WT < 150 kg, CrCl > 30 mL/min) AND/OR *Sequential Compression Device (SCD) 5 or more Highest Order ONE of the following medications: *Heparin 5000 units SQ TID (Preferred with Epidurals) *Enoxaparin/Lovenox 40 mg SQ daily (WT < 150 kg, CrCl > 30 mL/min) *Enoxaparin/Lovenox 30 mg SQ daily (WT < 150 kg, CrCl > 10-29 mL/min) *Enoxaparin/Lovenox 30 mg SQ BID (WT < 150 kg, CrCl > 30 mL/min) AND *Sequential Compression Device (SCD) Assessment and Plan Problem List: (1) Altered mental status ICD Codes: R41.82 - Altered mental status, unspecified Status: Acute Plan: - Pt is a 67 y/o WM who was recently diagnosed with metastatic invasive adenocarcinoma favoring lung primary. - Pt has been undergoing XRT therapy but has not yet been started on chemotherapy. - He follows with Dr. Bingham. - Pt was brought into the ED today by family for altered mental status. Pts nephew, Cathy, reports that for the last 4 days the pt has been increasingly confused, falling at home and has not been eating or drinking. The pts family also reports that the patient has had shaking chills as well. - He has port in the right chest which was placed last week. - Pt is is tachycardic with a slightly elevated WBC count at admission of 12.3. No fevers so far in the ED. - Head CT (05/26) --> an ill-defined 10 mm region of increased density along the medial right occipital mid convexities, suspect intra-axial lesion rather than focal subarachnoid blood products without significant mass effect or associated edema by CT. This is concerning for metastatic disease in this patient with history of lung CA. - CT Abd/pelvis (05/26)--> osseous metastatic disease with areas of cortical destruction and epidural extension, lateral adrenal nodules are suspicious for metastatic disease, bulky retroperitoneal and upper abdominal, and mesenteric adenopathy with a central irregular mesenteric mass involving the uncinate process of the pancreas and third portion of the duodenum. - CTA Chest (05/26)--> Right upper lobe spiculated mass, mediastinal and hilar adenopathy, and upper abdominal lymphadenopathy. Right adrenal nodule suspicious for metastatic disease. Diffuse osseous metastatic disease with destructive bony changes and spinal canal involvement with soft tissue extending into the epidural space at several levels. - Blood cultures were drawn in the ED and are pending - Case discussed with Dr. Bingham and he has been consulted - His AMS may be secondary to metastatic disease to the brain. There was no noted midline shift on the Head CT. - Pt was given a dose of dexamethasone in the ED. - Pt could also possibly be septic as a cause for his AMS, he recently had port placed last week. His chest exam noted some coarse breath sounds and pt with hx of COPD and is still smoking. - Start IVF - We will cover broadly with Vancomycin and Cefepime - Obtain MRI Brain - Pt reportedly passed bedside swallow evaluation per nursing staff. - He is a full code at this time. - Pts daughter, Stacey, will be coming to town tomorrow from [place] to help with making medical decisions. - Supportive care - DVT prophylaxis (2) Metastatic lung carcinoma ICD Codes: C78.00 - Secondary malignant neoplasm of unspecified lung Status: Acute Plan: - See above. - He recently established with [facility] and was seen by Dr. Angeles with complaints of chronic back pain and was sent for a CT lung which showed 2.6 cm spiculated mass in the right upper lobe with mediastinal adenopathy, multiple lytic bone lesions within the thoracic and upper lumbar spine. The largest measured 2.6 cm within the T9 vertebral body. The lesion appeared to have extended into the spinal canal. There was also suspected lesion T4, T6, T7, T8, T9, L1. There was another lytic lesion in the left scapula. - Pt was seen by Dr. Bingham. - Per the records from Oncology, the PET Scan noted a RUL hypermetabolic mass with multiple mediastinal and right hilar adenopathy. There was also hypermetabolic adenopathy in the upper abdomen and mesentery and possible right adrenal metastasis. - He was started on palliative XRT with Dr. Fernandes and had been planned for palliative chemo with Avastin, carboplatin, and Taxol after radiation. (3) COPD (chronic obstructive pulmonary disease) ICD Codes: J44.9 - Chronic obstructive pulmonary disease, unspecified Status: Chronic Plan: - Resume home meds - Duonebs Q4h Assessment and Plan Patient examined. Assessment and plan formulated with Maria Antonia Huang PA-C. I agree with the above. metastatic lung ca stage 4 new brain mets found presented with AMS r/o bacteremia. emperic abx until cx neg. mri brain ordered. decadron if edema present. discussed with oncology. poor prognosis. Physician Certification 2 Midnight Certification Type: Admission for Inpatient Services Order for Inpatient Services The services are ordered in accordance with Medicare regulations or non- Medicare payer requirements, as applicable. In the case of services not specified as inpatient-only, they are appropriately provided as inpatient services in accordance with the 2-midnight benchmark. Estimated LOS (days): 3 3 days is the estimated time the patient will need to remain in the hospital, assuming treatment plan goals are met and no additional complications. Post-Hospital Plan: Not yet determined Problem Qualifiers (1) Altered mental status: Qualified Codes: R41.82 - Altered mental status, unspecified (2) Metastatic lung carcinoma: Qualified Codes: C78.00 - Secondary malignant neoplasm of unspecified lung Maria Antonia Huang May 26, 2017 14:26 Cristian Hale MD May 26, 2017 20:52
[2017-05-26] MEDS ORDERED: DEXAMETHASONE SOD PHOS 4 MG/ML VIAL IV PUSH ONE (14:30)
--- NOTE | 2017-05-26 14:41 | PD ---
Physical Exam Narrative GENERAL: Thin, well-developed patient. SKIN: Warm and dry. HEAD: Normocephalic EYES: No injection or drainage. ENT: No nasal drainage noted. NECK: Supple, trachea midline. CARDIOVASCULAR: Tachycardic rate and regular rhythm RESPIRATORY: Mild tachypnea. No accessory muscle use. NEUROLOGICAL: Eyes open to voice, moves all extremities, knows his name Data Data Last Documented VS Vital Signs Date Time Temp Pulse Resp B/P (MAP) Pulse Ox O2 Delivery O2 Flow Rate FiO2 05/26/17 13:31 120 19 126/67 (86) 96 Nasal Cannula 4.00 05/26/17 11:17 97.9 Orders Orders Electrocardiogram (05/26/17 11:41) Complete Blood Count With Diff (05/26/17 11:41) Comprehensive Metabolic Panel (05/26/17 11:41) Creatine Kinase (Cpk) (05/26/17 11:41) Prothrombin Time / Inr (Pt) (05/26/17 11:41) Act Partial Throm Time (Ptt) (05/26/17 11:41) Troponin I (05/26/17 11:41) Urinalysis - C+S If Indicated (05/26/17 11:41) Lactic Acid Sepsis Protocol (05/26/17 11:41) Blood Culture (05/26/17 11:41) Chest, Single Ap (05/26/17 11:41) Ct Brain W/O Iv Contrast(Rout) (05/26/17 11:41) Blood Glucose (05/26/17 11:41) Ecg Monitoring (05/26/17 11:41) Iv Access Insert/Monitor (05/26/17 11:41) Oximetry (05/26/17 11:41) Sodium Chloride 0.9% Flush (Ns Flush) (05/26/17 11:45) Ct Pulmonary Angiogram (05/26/17 ) Magnesium (Mg) (05/26/17 11:41) Sodium Chlor 0.9% 1000 Ml Inj (Ns 1000 M (05/26/17 11:45) Albuterol-Ipratropium Neb (Duoneb Neb) (05/26/17 11:45) Ct Abd/Pel W Iv Contrast(Rout) (05/26/17 ) CKMB (05/26/17 12:15) CKMB% (05/26/17 12:15) Cath For Specimen (05/26/17 13:01) Iohexol 350 Inj (Omnipaque 350 Inj) (05/26/17 13:38) Admit Order (Ed Use Only) (05/26/17 14:00) Labs Laboratory Tests Test 05/26/17 12:15 05/26/17 13:55 White Blood Count 12.3 TH/MM3 Red Blood Count 4.75 MIL/MM3 Hemoglobin 12.7 GM/DL Hematocrit 39.8 % Mean Corpuscular Volume 83.8 FL Mean Corpuscular Hemoglobin 26.8 PG Mean Corpuscular Hemoglobin Concent 32.0 % Red Cell Distribution Width 16.5 % Platelet Count 304 TH/MM3 Mean Platelet Volume 6.7 FL Neutrophils (%) (Auto) 93.7 % Lymphocytes (%) (Auto) 0.8 % Monocytes (%) (Auto) 5.3 % Eosinophils (%) (Auto) 0.1 % Basophils (%) (Auto) 0.1 % Neutrophils # (Auto) 11.5 TH/MM3 Lymphocytes # (Auto) 0.1 TH/MM3 Monocytes # (Auto) 0.7 TH/MM3 Eosinophils # (Auto) 0.0 TH/MM3 Basophils # (Auto) 0.0 TH/MM3 CBC Comment DIFF FINAL Differential Comment Prothrombin Time 12.1 SEC Prothromb Time International Ratio 1.1 RATIO Activated Partial Thromboplast Time 29.0 SEC Blood Urea Nitrogen 43 MG/DL Creatinine 1.02 MG/DL Random Glucose 108 MG/DL Total Protein 7.4 GM/DL Albumin 2.5 GM/DL Calcium Level 10.1 MG/DL Magnesium Level 2.3 MG/DL Alkaline Phosphatase 126 U/L Aspartate Amino Transf (AST/SGOT) 61 U/L Alanine Aminotransferase (ALT/SGPT) 22 U/L Total Bilirubin 0.5 MG/DL Sodium Level 133 MEQ/L Potassium Level 4.4 MEQ/L Chloride Level 97 MEQ/L Carbon Dioxide Level 23.0 MEQ/L Anion Gap 13 MEQ/L Estimat Glomerular Filtration Rate 73 ML/MIN Lactic Acid Level 1.3 mmol/L Total Creatine Kinase 837 U/L Creatine Kinase MB 7.5 NG/ML Creatine Kinase MB % 0.9 % Troponin I LESS THAN 0.02 NG/ML Urine Color YELLOW Urine Turbidity CLEAR Urine pH 5.0 Urine Specific [place] 1.025 Urine Protein TRACE mg/dL Urine Glucose (UA) NEG mg/dL Urine Ketones 10 mg/dL Urine Occult Blood NEG Urine Nitrite NEG Urine Bilirubin NEG Urine Urobilinogen LESS THAN 2.0 MG/DL Urine Leukocyte Esterase NEG Urine WBC 1 /hpf Urine Hyaline Casts 5 /lpf Urine Mucus FEW /lpf Microscopic Urinalysis Comment CATH-CULT NOT IND MDM Supervised Visit with ALIVIA: Yes Interpretation(s) CBC & BMP Diagram 05/26/17 12:15 Total Protein 7.4, Albumin 2.5 L, Calcium Level 10.1, Magnesium Level 2.3, Alkaline Phosphatase 126 H, Aspartate Amino Transf (AST/SGOT) 61 H, Alanine Aminotransferase (ALT/SGPT) 22, Total Bilirubin 0.5 CT brain shows metastatic disease without shift or edema CT abdomen shows extensive disease with iliac thrombosis-given risk for bleeding will not emergently start blood thinner Narrative Course I, Dr. trevino, have reviewed the advance practice practitioner's documentation and am in agreement, met with the patient face to face, made the diagnosis, and the medical decision making was done by me. *My assessment and Findings: 67-year-old male presents with altered mental status with history of metastatic lung cancer. CT shows spread of cancer to brain. Decadron given. Attempted to update patient but he is too confused and family is not present currently Diagnosis Primary Impression: Altered mental status Qualified Codes: R41.82 - Altered mental status, unspecified Additional Impressions: Metastatic lung carcinoma Qualified Codes: C78.00 - Secondary malignant neoplasm of unspecified lung Iliac vein thrombosis Qualified Codes: I82.421 - Acute embolism and thrombosis of right iliac vein Phyllis Trevino MD May 26, 2017 14:41
[2017-05-26] MEDS ORDERED: PIPERACIL-TAZO 3.375 GM PREMIX 50 ML IV SCH (15:00)
[2017-05-26] MEDS ORDERED: SENNOSIDES 8.6 MG TAB PO PRN (15:00)
[2017-05-26] MEDS ORDERED: VANCOMYCIN INJ 1,000 MG in SODIUM CHLOR 0.9% 250 ML INJ 250 ML IV SCH (15:30)
[2017-05-26] MEDS ORDERED: Vancomycin Consult Pharmacy 1 EA OTHER SCH (15:30)
[2017-05-26] MEDS ORDERED: ONDANSETRON HCL 4 MG/2 ML VIAL IV PRN (15:30)
[2017-05-26] MEDS ORDERED: ACETAMINOPHEN 325 MG TAB PO PRN (15:30)
[2017-05-26] MEDS: CEFEPIME INJ 1,000 MG in SODIUM CHLORIDE 0.9% INJ 100 ML IV SCH (15:53)
[2017-05-26] MEDS: POTASSIUM CHLORIDE INJ 10 MEQ in SODIUM CHLOR 0.9% 1000 ML INJ 1,000 ML IV SCH (16:39)
[2017-05-26] MEDS: RESP: ALBUTEROL 2.5 MG/IPRATROPIUM 0.5 MG NEB (SCH) NEB ×3 (16:49→23:39)
[2017-05-26] MEDS: VANCOMYCIN INJ 1,500 MG in SODIUM CHLORID 0.9% 500 ML INJ 500 ML IV SCH (20:12)
[2017-05-26] MEDS ORDERED: AMITRIPTYLINE HCL 50 MG TAB PO SCH (21:00)
[2017-05-26] MEDS: MORPHINE SULFATE 15 MG CONTROLLED RELEASE TAB PO SCH (22:27)
[2017-05-27] VITALS (9 sets, daily range): BP systolic 106–151; BP diastolic 68–98; PULSE 90–115; RESP 18–20; TEMP 96.3–97.6; O2SAT 92–97
[2017-05-27] MEDS: CEFEPIME INJ 1,000 MG in SODIUM CHLORIDE 0.9% INJ 100 ML IV SCH (01:05)
[2017-05-27] MEDS: RESP: ALBUTEROL 2.5 MG/IPRATROPIUM 0.5 MG NEB (SCH) NEB ×4 (02:45→16:00)
[2017-05-27] MEDS: VANCOMYCIN INJ 1,500 MG in SODIUM CHLORID 0.9% 500 ML INJ 500 ML IV SCH (05:26)
--- NOTE | 2017-05-27 06:30 | MB ---
cc: CHARLES ECHEVERRIA M.D. DATE OF CONSULTATION May 26, 2017. ATTENDING PHYSICIAN Dr. Hale REASON FOR CONSULTATION Oncology consult to render opinion regarding patient with metastatic lung cancer, admitted with mental status change. HISTORY OF PRESENT ILLNESS The patient is a 67-year-old male with more than 50 pack-year smoking history who first experienced back pain in November. He did not have insurance until he turned 67. He eventually had a CT scan which showed right upper lobe lung mass. He had diffuse adenopathy in the thorax and abdomen. He had a large mass that eroded into the spinal canal. Biopsy showed metastatic adenocarcinoma. EGFR negative, PD-L1 negative. He was receiving palliative radiation to the spine under the care of Dr. Fernandes. He was arranged to start chemotherapy after he completed radiation this week. He, however, was noted to be confused this morning. He was brought into the emergency room via EMS for altered mental status. When I saw him in the emergency room he recognized the examiner; however, he is also oriented to place. He could not remember why he is in the hospital. He could not provide any details. He denies any fever or chills. He denies any headache or visual changes. Denies chest pain. He is on oxygen. He denies significant cough. He has back pain but denies other symptoms. PAST MEDICAL HISTORY 1. A recent diagnosis of metastatic lung cancer. 2. Chronic obstructive pulmonary disease. PAST SURGICAL HISTORY 1. Port placement. 2. Biopsy of lung mass. FAMILY HISTORY He has two brothers, both alive. He has a daughter who is alive. SOCIAL HISTORY He is retired. He smoked a pack a day for 50 years. Drinks occasionally. His daughter lives in [place]. ALLERGIES No known drug allergy. OUTPATIENT MEDICATION 1. Oxycodone. 2. Amitriptyline REVIEW OF SYSTEMS CONSTITUTIONAL: He could not provide specific details. EYES: Denies any blurry vision, double vision. ENT: No mouth sores or voice changes. CARDIOVASCULAR: No chest pressure, palpitations. RESPIRATORY: Has shortness of breath, occasional cough and hemoptysis. GI: Negative. : Negative. MUSCULOSKELETAL: As above. DERMATOLOGY: Negative. PSYCHIATRIC: As above. NEUROLOGIC: As above. PHYSICAL EXAMINATION VITAL SIGNS: Temperature 97.9, blood pressure 134/66, pulse 114, O2 saturation 94% on 4 liters nasal cannula. GENERAL: He is alert, oriented x 3, in no acute distress. HEENT: Atraumatic, normocephalic. Pupils equal, round and reactive to light. Extraocular muscles intact. No scleral icterus. Oropharynx - dry mucosa; no lesion or thrush. NECK: No thyromegaly. No palpable mass. LYMPHATIC: No palpable cervical, clavicular, axillary or inguinal lymph nodes. CARDIOVASCULAR: Regular S1 and S2. LUNGS: Clear to auscultation, without wheezing or rhonchi. ABDOMEN: Soft, nontender. EXTREMITIES: No cyanosis, no edema. BACK: Tender in the low back. SKIN: The right chest port site with no erythema. Steri-Strips still in place. NEUROLOGIC EXAM: He is oriented to place but not event. LABORATORY DATA Reviewed. ASSESSMENT 1. Mental status change which started this morning. He had a CT of the head done in the emergency room which showed a 1-cm ill-defined region of increased density in the medial right occipital mid-convexity. Metastatic disease cannot be ruled out. Interestingly, the patient had an open MRI of the brain two weeks ago which did not show any brain metastasis. However, the study was limited due to motion artifact. He has no other focal deficit. I agree with repeat MRI of the brain to make sure he does not have of metastatic disease that is causing a mental status change. He is afebrile and no clear evidence of infection. He has mild leukocytosis but that may be due to underlying malignancy. His culture is pending. He was started on empiric antibiotic in the emergency room. 2. Metastatic non-small cell lung cancer. He had right lung mass with significant mediastinal adenopathy. He had diffuse bone lesion. He also had significant retroperitoneal adenopathy. The mass has eroded into the spinal canal. He has significant back pain. He is currently receiving palliative radiation. Biopsy of the lung mass showed adenocarcinoma, EGFR negative, PD-L1 less than 1%. ROS1, ALK study are still pending. Initially we planned on giving him palliative chemotherapy after he is done with radiation. However, he is getting weaker. We need to address the mental status change first. If he regains some of his strength, we can consider palliative chemotherapy; if not I would recommend Hospice care. I am going to consult Palliative Medicine for symptom management as well as try to clarify the goal of therapy. 3. Back pain due to bone metastasis, currently receiving palliative radiation. Continue pain medication for now. 4. Chronic obstructive pulmonary disease on oxygen. RECOMMENDATIONS 1. Await brain MRI. 2. Consult Palliative Medicine. 3. Monitor blood culture. Thank you Dr. Hale for asking me to see this patient. MD ROSCOE Lynn/JOSE /4:13 PM /6:13 AM MTDJorge
[2017-05-27 07:19] LABS: ALKALINE PHOSPHATASE 104 U/L (45-117); ALT (GPT) 19 U/L (12-78); ANION GAP 5 MEQ/L (5-15); AST (GOT) 41 U/L (15-37); BICARBONATE 30.3 MEQ/L (21.0-32.0); BLOOD UREA NITROGEN 28 MG/DL (7-18); CHLORIDE 100 MEQ/L (98-107); GLOMERULAR FILTRATION RATE 126 ML/MIN (>89); MAGNESIUM 2.1 MG/DL (1.5-2.5); POTASSIUM 4.4 MEQ/L (3.5-5.1); SODIUM (NA) 135 MEQ/L (136-145); TOTAL BILIRUBIN ADULT 0.3 MG/DL (0.2-1.0)
[2017-05-27 07:21] LABS: HEMATOCRIT 33.7 % (39.0-51.0); HEMO FLAGS DIFF FINAL; LYMPHOCYTE # 0.2 TH/MM3 (1.0-4.8); MEAN CELL VOLUME 84.1 FL (80.0-100.0); MEAN CORPUSCULAR HEMOGLOBIN 27.5 PG (27.0-34.0); MEAN CORPUSCULAR HGB CONC 32.7 % (32.0-36.0); MONO % 8.4 % (0.0-8.0); NEUT % 89.6 % (16.0-70.0); PLATELET COUNT 251 TH/MM3 (150-450); RED CELL DISTRIBUTION WIDTH 16.8 % (11.6-17.2)
[2017-05-27] MEDS ORDERED: LORazepam 2 MG/ML VIAL IV PUSH ONE (08:15)
--- NOTE | 2017-05-27 08:17 | HHI.PR ---
Subjective Remarks confused asking for family to help make decisions. Objective Vitals confused heart reg lung course bs abd s/nt ext no edema Vital Signs Date Time Temp Pulse Resp B/P (MAP) Pulse Ox O2 Delivery O2 Flow Rate FiO2 05/27/17 04:00 96.3 98 18 151/98 (115) 97 05/27/17 04:00 90 05/27/17 00:00 97 05/27/17 00:00 96.7 91 18 116/69 (85) 94 05/26/17 20:55 105 05/26/17 20:45 93 Nasal Cannula 5.00 05/26/17 20:00 97.3 98 18 124/81 (95) 96 05/26/17 19:00 129 05/26/17 17:37 97.2 117 20 113/79 (90) 88 05/26/17 16:53 05/26/17 16:45 112 16 116/66 (83) 94 Nasal Cannula 4.00 05/26/17 14:00 114 16 134/66 (88) 94 Nasal Cannula 4.00 05/26/17 13:31 120 19 126/67 (86) 96 Nasal Cannula 4.00 05/26/17 11:31 87 Room Air 05/26/17 11:31 Nasal Cannula 4.00 05/26/17 11:17 97.9 130 19 109/66 (80) 93 Result Diagram: 05/27/1762205/27/17622 Imaging Last Impressions Head CT 05/26/17 1141 Signed Impressions: Service Date/Time: Friday, May 26, 2017 13:18 - CONCLUSION: 1. Il-defined 10 mm region of increased density along the medial right occipital mid convexities. Suspect intra-axial lesion rather than focal subarachnoid blood products. No significant mass effect or associated edema by CT. This is concerning for metastatic disease in this patient with history of lung CA. Recommend MRI examination for further characterization. 2. Left maxillary and ethmoid sinusitis. Kevin Boss MD Chest X-Ray 05/26/17 1141 Signed Impressions: Service Date/Time: Friday, May 26, 2017 12:04 - CONCLUSION: 1. Mild bibasilar atelectatic changes, right worse than left. 2. Right IJ Infuse-a- Port with the tip projecting over the central venous system. Obdulio Choi MD CT Angiography 05/26/17 0000 Signed Impressions: Service Date/Time: Friday, May 26, 2017 13:24 - CONCLUSION: 1. Right upper lobe spiculated mass, mediastinal and hilar adenopathy, and upper abdominal lymphadenopathy. 2. Right adrenal nodule suspicious for metastatic disease. 3. Diffuse osseous metastatic disease with destructive bony changes and spinal canal involvement with soft tissue extending into the epidural space at several levels. John Chen MD Abdomen/Pelvis CT 05/26/17 0000 Signed Impressions: Service Date/Time: Friday, May 26, 2017 13:28 - CONCLUSION: 1. Osseous metastatic disease with areas of cortical destruction and epidural extension as above. 2. Lateral adrenal nodules are suspicious for metastatic disease. 3. Bulky retroperitoneal and upper abdominal, and mesenteric adenopathy with a central irregular mesenteric mass involving the uncinate process of the pancreas and third portion of the duodenum. 4. Not mentioned above is focal clot in the right common iliac vein just proximal to the venous confluence on image 42. John Chen MD A/P Problem List: (1) Altered mental status ICD Codes: R41.82 - Altered mental status, unspecified Status: Acute Plan: - Pt is a 67 y/o WM who was recently diagnosed with metastatic invasive adenocarcinoma favoring lung primary. - Pt has been undergoing XRT therapy but has not yet been started on chemotherapy. - He follows with Dr. Bingham. - Pt was brought into the ED today by family for altered mental status. Pts nephew, Cathy, reports that for the last 4 days the pt has been increasingly confused, falling at home and has not been eating or drinking. The pts family also reports that the patient has had shaking chills as well. - He has port in the right chest which was placed last week. - Pt is is tachycardic with a slightly elevated WBC count at admission of 12.3. No fevers so far in the ED. - Head CT (05/26) --> an ill-defined 10 mm region of increased density along the medial right occipital mid convexities, suspect intra-axial lesion rather than focal subarachnoid blood products without significant mass effect or associated edema by CT. This is concerning for metastatic disease in this patient with history of lung CA. - CT Abd/pelvis (05/26)--> osseous metastatic disease with areas of cortical destruction and epidural extension, lateral adrenal nodules are suspicious for metastatic disease, bulky retroperitoneal and upper abdominal, and mesenteric adenopathy with a central irregular mesenteric mass involving the uncinate process of the pancreas and third portion of the duodenum. - CTA Chest (05/26)--> Right upper lobe spiculated mass, mediastinal and hilar adenopathy, and upper abdominal lymphadenopathy. Right adrenal nodule suspicious for metastatic disease. Diffuse osseous metastatic disease with destructive bony changes and spinal canal involvement with soft tissue extending into the epidural space at several levels. - Blood cultures were drawn in the ED and are pending - Case discussed with Dr. Bingham and he has been consulted - His AMS may be secondary to metastatic disease to the brain. There was no noted midline shift on the Head CT. - Pt was given a dose of dexamethasone in the ED. - Pt could also possibly be septic as a cause for his AMS, he recently had port placed last week. His chest exam noted some coarse breath sounds and pt with hx of COPD and is still smoking. supportive care monitor cx. hold abx. mri brain pending. Dr Bingham following. palliative consulted and family is coming today to assist with decision making. pt appears appropriate for hospice. Pt reportedly passed bedside swallow evaluation per nursing staff. He is a full code at this time. Pts daughter, Stacey, will be coming to [facility] from [place] to help with making medical decisions. DVT prophylaxis (2) Metastatic lung carcinoma ICD Codes: C78.00 - Secondary malignant neoplasm of unspecified lung Status: Acute Plan: - See above. - He recently established with [facility] and was seen by Dr. Angeles with complaints of chronic back pain and was sent for a CT lung which showed 2.6 cm spiculated mass in the right upper lobe with mediastinal adenopathy, multiple lytic bone lesions within the thoracic and upper lumbar spine. The largest measured 2.6 cm within the T9 vertebral body. The lesion appeared to have extended into the spinal canal. There was also suspected lesion T4, T6, T7, T8, T9, L1. There was another lytic lesion in the left scapula. - Pt was seen by Dr. Bingham. - Per the records from Oncology, the PET Scan noted a RUL hypermetabolic mass with multiple mediastinal and right hilar adenopathy. There was also hypermetabolic adenopathy in the upper abdomen and mesentery and possible right adrenal metastasis. - He was started on palliative XRT with Dr. Fernandes and had been planned for palliative chemo with Avastin, carboplatin, and Taxol after radiation. (3) COPD (chronic obstructive pulmonary disease) ICD Codes: J44.9 - Chronic obstructive pulmonary disease, unspecified Status: Chronic Plan: - Resume home meds - Duonebs Q4h Problem Qualifiers (1) Altered mental status: Qualified Codes: R41.82 - Altered mental status, unspecified (2) Metastatic lung carcinoma: Qualified Codes: C78.00 - Secondary malignant neoplasm of unspecified lung Cristian Hale MD May 27, 2017 08:17
--- NOTE | 2017-05-27 08:38 | EKG ---
Date Performed: 05/26/2017 Time Performed: 13:12:16 PTAGE: 67 years EKG: SINUS TACHYCARDIA INFERIOR MYOCARDIAL INFARCTION ABNORMAL ECG NO PREVIOUS TRACING DOCTOR: Kristopher Hernandez Interpretating Date/Time 05/27/2017 08:37:24
[2017-05-27] MEDS: MORPHINE SULFATE 15 MG CONTROLLED RELEASE TAB PO SCH (08:39)
[2017-05-27] MEDS ORDERED: UMECLIDINIUM 62.5 MCG/VILANTEROL 25 MCG INHALER INH SCH (09:00)
--- NOTE | 2017-05-27 10:57 | PD.CONS ---
Consult Service Palliative Care Consult Requested By Dr. Bingham . Primary Care Physician Lyle Angeles D.O. . Reason for Consultation a. To assist with evaluation and management of symptoms including: Pain, dyspnea, AMS b. To assist medical decision maker(s) with: better understanding of current medical conditions; weighing benefits/burdens of medical treatment options; making medical treatment decisions. . HPI History of Present Illness This 67-year-old male, with a past history of cigarette smoking and COPD, developed mid and lower back pain several months ago. It gradually worsened, but he did not seek medical services since he had no insurance. He turned 67 and became covered by Medicare, and then sought medical evaluation. In April [address] scan of his chest that revealed a 2.6 cm right upper lobe spiculated mass as well as significant mediastinal adenopathy and multiple lytic bone lesions (including a lesion at T9 that protruded into the spinal canal). He had been having increasing pain and had also lost 10 or 15 pounds at that time. He was seen for initial consultation by oncology Dr. Bingham on 04/23. At that time, the patient was using Percocet for pain. He was subsequently seen by radiation oncologist Dr. Fernandes on 04/30/17. Additional workup was underway when he followed up with oncology on 05/09/17, and at that time he was now on dexamethasone and long-acting morphine. Biopsy results had become available, and the patient was noted to have non-small cell cancer that favored lung origin. A PET scan had also been completed, and it revealed lesions in the right upper lobe, mediastinal adenopathy, upper abdominal adenopathy, mesentery, and diffuse bony metastatic disease at that time. An MRI of the brain had been completed and was said to be negative then. The patient followed up again on 05/20/17 while he was undergoing radiation therapy of the thoracic spine. He was noted to be using a walker and was having worsening weakness and fatigue. A plan was made to begin a Avastin, carboplatin , and Taxol after radiation therapy was completed. Over the 4 days prior to this admission, the patient had been taking very little orally, had become weaker and was having some falls at home, and had developed altered mental status. His caregiver (Haven, who refers to the patient as his uncle but the patient says is "a good friend") reported that the patient had been eating essentially nothing for 4 days, and also said that he seemed to be having some shaking chills at times.. He was brought to the emergency department on 05/26/17 and evaluated. Findings in the emergency department included: * Intermittent confusion, significant weakness * Temp 97.9, pulse 120, respirations 19, blood pressure 126/67, oxygen saturation 96% on 4 L. * White count 12.3, hemoglobin 12.7 * Sodium 133, creatinine 1.02, albumin 2.5 * Chest x-ray with atelectasis * CT brain scan with a 10 mm ill-defined lesion on the right * CTA of the chest again showed the various cancer and metastatic changes * CT of the abdomen and pelvis revealed adrenal metastatic disease and lots of bulky adenopathy; there was also a mass in the uncinate portion of the pancreas Cultures were obtained, the patient was placed on antibiotics, and he was admitted. Overnight, the patient was continued on his usual MS Contin, but he did not receive any breakthrough opiates or benzodiazepines. This morning as I am seeing the patient in his bed, he says he has "still a little" pain in his mid and lower back. It is constant and it is worse when he moves about. He does believe his morphine is helping it. The patient is on supplemental oxygen and does not field dyspneic at this time. He does not have a headache. Oncology saw the patient this morning, and feels that the patient is too weak at this time to initiate chemotherapy. Palliative Care was consulted to assist with symptom management, and to enter into discussions with the patient and his family/friends regarding his current illness, the prognosis, and the benefits and burdens of the various treatment choices. . Function/Cognitive Trajectory The patient has been getting weaker the past few months, and he has been using a walker at home for the past month. In the 4 days prior to admission, the patient did not have enough strength to ambulate with his walker and he had at least a couple falls without obvious injury. At the same time, he was having some intermittent confusion but no hallucinations. . Review of Systems ROS Limitations: Altered Mental Status Constitutional: COMPLAINS OF: Chills, DENIES: Fever Endocrine: DENIES: Polyuria Eyes: DENIES: Eye inflammation Ears, nose, mouth, throat: DENIES: Nasal discharge, Epistaxis Respiratory: COMPLAINS OF: Cough (chronic for a couple months), Wheezing ( occasionally), Shortness of breath (intermittently for a couple weeks), DENIES: Hemoptysis Cardiovascular: COMPLAINS OF: Dyspnea on Exertion, DENIES: Chest pain Gastrointestinal: DENIES: Abdominal pain, Constipation, Diarrhea, Vomiting Genitourinary: DENIES: Hematuria Musculoskeletal: COMPLAINS OF: Joint pain, Back pain Integumentary: DENIES: Rash Hematologic/Lymphatics: DENIES: Bruising Immunologic/Allergic: DENIES: Urticaria Neurologic: DENIES: Localized weakness, Paresthesias, Seizures Psychiatric: COMPLAINS OF: Confusion, DENIES: Hallucinations, Agitation Past Family Social History Coded Allergies: No Known Allergies (Unverified , 05/26/17) Past Medical History * Adenocarcinoma of the lung, widely metastatic * 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 Past Surgical History * Spine biopsy April 2017 * Right-sided Reafco-p-Cozy May 2017 . Reported Medications Reported Meds & Active Scripts Active Reported Senna Laxative (Sennosides) 8.6 Mg Tab 17.2 Mg PO HS PRN Morphine ER (Morphine Sulfate) 15 Mg Tab 15 Mg PO Q12HR Oxycodone (Oxycodone HCl) 10 Mg Tab 10 Mg PO Q4H PRN Dexamethasone 4 Mg Tab 4 Mg PO DAILY Ventolin Hfa 18 GM Inh (Albuterol Sulfate) 90 Mcg/Act Aer 2 Puff INH Q4-6H PRN Anoro Ellipta Inh (Umeclidinium/Vilanterol) 62.5-25 Mcg/Act Aero 1 Puff INH DAILY Amitriptyline (Amitriptyline HCl) 50 Mg Tab 50 Mg PO HS . Current Medications Medications (Trade) Dose Ordered Sig/Sarah Route Start Time Stop Time Status Last Admin (NS Flush) 2 ml UNSCH PRN IV FLUSH 05/26/17 11:45 (Duoneb Neb) 1 ampule Q4HR NEB NEB 05/26/17 16:00 05/27/17 09:09 (Elavil) 50 mg HS PO 05/26/17 21:00 05/26/17 22:27 (Oramorph Sr) 15 mg Q12HR PO 05/26/17 21:00 05/27/17 08:39 (Roxicodone) 10 mg Q4H PRN PO 05/26/17 15:00 (Senokot) 17.2 mg HS PRN PO 05/26/17 15:00 Potassium Chloride 10 meq/ Sodium Chloride 1,005 ml @ 80 mls/hr [id number] IV 05/26/17 15:00 05/26/17 16:39 (Tylenol) 650 mg Q4H PRN PO 05/26/17 15:30 (Zofran Inj) 4 mg Q6H PRN IV 05/26/17 15:30 Family History The patient's mother of "natural causes," and his father at age 69 of heart disease. There is no reported family history of lung cancer. . Substance Use Tobacco: He is smoked many years, approximately 50 pack years Alcohol: Occasional Prescription med abuse: None Illicits: None . Psychosocial History The patient was born in [place], and moved to this area several years ago. He has been living by himself but has a close friend Cathy who has been looking after him the last couple months. The patient was once, . He has one daughter Stacey who lives in [place] and is on her way here now. The patient worked "in various jobs off and on." . Spiritual/Cultural Factors The patient reports he believes in God, but has been on affiliated with any voodoo or clergy. He does not desire manufacturing associate visits. . Living Will: Never completed Health Care Surrogate: Never completed Durable Power of Centrifugal Supervisor: Never completed Today's verbally stated goals: The patient feels like he wants to transition to comfort care, likely engaging hospice services, but he is wanting to wait until the meeting we have this afternoon that includes his daughter and his close friend. He does request DNR status at this time. EDIT: Met with daughter Stacey and close friend Cathy with Cirilo Sawant LCSW in attendance at 1:30 PM; the patient is lethargic this afternoon now and does not participate in the discussion. [place] and Stacey both agree that they want a transition to comfort care, engaging hospice services at this time. . Family/friends goals: Comfort care, hospice services . Ethical and Legal Issues There are no ethical issues that would impact his care or decision-making at this time. The patient is alert and his speech is clear, but he does have some intermittent confusion. He seems to have good insight into his disease and its terminality. I believe it is reasonable for him to engage in medical decision- making on a shared basis at this time. I expect that he will not be able to participate in decision-making in the upcoming days or weeks as his debility and disease progresses. EDIT: After are 1:30 PM meeting today, the patient has declined and is more lethargic, and his daughter Stacey is the healthcare proxy. . Physical Exam Vital Signs Date Time Temp Pulse Resp B/P (MAP) Pulse Ox O2 Delivery O2 Flow Rate FiO2 05/27/17 09:10 92 Nasal Cannula 4.00 05/27/17 07:50 96.3 104 20 121/77 (92) 94 05/27/17 04:00 96.3 98 18 151/98 (115) 97 05/27/17 04:00 90 05/27/17 00:00 97 05/27/17 00:00 96.7 91 18 116/69 (85) 94 05/26/17 20:55 105 05/26/17 20:45 93 Nasal Cannula 5.00 05/26/17 20:00 97.3 98 18 124/81 (95) 96 05/26/17 19:00 129 05/26/17 17:37 97.2 117 20 113/79 (90) 88 05/26/17 16:53 05/26/17 16:45 112 16 116/66 (83) 94 Nasal Cannula 4.00 05/26/17 14:00 114 16 134/66 (88) 94 Nasal Cannula 4.00 05/26/17 13:31 120 19 126/67 (86) 96 Nasal Cannula 4.00 05/26/17 11:31 87 Room Air 05/26/17 11:31 Nasal Cannula 4.00 05/26/17 11:17 97.9 130 19 109/66 (80) 93 05/27/17 05/28/17 18:59 06:59 Output Total 550 ml Balance -550 ml Output Urine Total 550 ml Exam CONSTITUTIONAL/GENERAL: This is an adequately nourished patient, in no apparent distress. TUBES/LINES/DRAINS: Peripheral IV SKIN: No jaundice, rashes, or lesions. Ecchymoses on upper extremities. No wounds seen anteriorly. Skin temperature appropriate. Not diaphoretic. HEAD: Atraumatic. Normocephalic. EYES: Pupils equal and round and reactive. Extraocular motions intact. No scleral icterus. No injection or drainage. Fundi not examined. ENT: Hearing grossly normal. Nose without bleeding or purulent drainage. Throat without visible erythema, exudates, masses, or lesions. NECK: Trachea midline. Supple, nontender. No palpable thyroid enlargement or nodularity. CARDIOVASCULAR: Regular rate and rhythm without murmurs, gallops, or rubs. No JVD. Peripheral pulses symmetric. RESPIRATORY/CHEST: Symmetric, unlabored respirations. Scattered rhonchi bilateral GASTROINTESTINAL: Abdomen soft, non-tender, nondistended. No hepato-splenomegaly , or palpable masses. No guarding. Bowel sounds present. GENITOURINARY: Without palpable bladder distension. MUSCULOSKELETAL: Extremities without clubbing, cyanosis, or edema. No joint tenderness or effusion noted. No calf tenderness. No mottling or clubbing. LYMPHATICS: No palpable cervical or supraclavicular adenopathy. NEUROLOGICAL: Awake and alert. Motor function seems to be intact, and he follows simple commands. There is intermittent confusion about date and place.. PSYCHIATRIC: No obvious anxiety/depression. no apparent hallucinations or other psychotic thought process. . Diagnostic Tests Laboratory Laboratory Tests Test 05/26/17 12:15 05/26/17 13:55 05/27/17 06:23 White Blood Count 12.3 TH/MM3 (4.0-11.0) 9.0 TH/MM3 (4.0-11.0) Red Blood Count 4.75 MIL/MM3 (4.50-5.90) 4.00 MIL/MM3 (4.50-5.90) Hemoglobin 12.7 GM/DL (13.0-17.0) 11.0 GM/DL (13.0-17.0) Hematocrit 39.8 % (39.0-51.0) 33.7 % (39.0-51.0) Mean Corpuscular Volume 83.8 FL (80.0-100.0) 84.1 FL (80.0-100.0) Mean Corpuscular Hemoglobin 26.8 PG (27.0-34.0) 27.5 PG (27.0-34.0) Mean Corpuscular Hemoglobin Concent 32.0 % (32.0-36.0) 32.7 % (32.0-36.0) Red Cell Distribution Width 16.5 % (11.6-17.2) 16.8 % (11.6-17.2) Platelet Count 304 TH/MM3 (150-450) 251 TH/MM3 (150-450) Mean Platelet Volume 6.7 FL (7.0-11.0) 6.8 FL (7.0-11.0) Neutrophils (%) (Auto) 93.7 % (16.0-70.0) 89.6 % (16.0-70.0) Lymphocytes (%) (Auto) 0.8 % (9.0-44.0) 2.0 % (9.0-44.0) Monocytes (%) (Auto) 5.3 % (0.0-8.0) 8.4 % (0.0-8.0) Eosinophils (%) (Auto) 0.1 % (0.0-4.0) 0.0 % (0.0-4.0) Basophils (%) (Auto) 0.1 % (0.0-2.0) 0.0 % (0.0-2.0) Neutrophils # (Auto) 11.5 TH/MM3 (1.8-7.7) 8.0 TH/MM3 (1.8-7.7) Lymphocytes # (Auto) 0.1 TH/MM3 (1.0-4.8) 0.2 TH/MM3 (1.0-4.8) Monocytes # (Auto) 0.7 TH/MM3 (0-0.9) 0.7 TH/MM3 (0-0.9) Eosinophils # (Auto) 0.0 TH/MM3 (0-0.4) 0.0 TH/MM3 (0-0.4) Basophils # (Auto) 0.0 TH/MM3 (0-0.2) 0.0 TH/MM3 (0-0.2) CBC Comment DIFF FINAL DIFF FINAL Differential Comment Prothrombin Time 12.1 SEC (9.8-11.6) Prothromb Time International Ratio 1.1 RATIO Activated Partial Thromboplast Time 29.0 SEC (24.3-30.1) Blood Urea Nitrogen 43 MG/DL (7-18) 28 MG/DL (7-18) Creatinine 1.02 MG/DL (0.60-1.30) 0.64 MG/DL (0.60-1.30) Random Glucose 108 MG/DL (74-106) 106 MG/DL (74-106) Total Protein 7.4 GM/DL (6.4-8.2) 6.3 GM/DL (6.4-8.2) Albumin 2.5 GM/DL (3.4-5.0) 2.0 GM/DL (3.4-5.0) Calcium Level 10.1 MG/DL (8.5-10.1) 9.2 MG/DL (8.5-10.1) Magnesium Level 2.3 MG/DL (1.5-2.5) 2.1 MG/DL (1.5-2.5) Alkaline Phosphatase 126 U/L (45-117) 104 U/L (45-117) Aspartate Amino Transf (AST/SGOT) 61 U/L (15-37) 41 U/L (15-37) Alanine Aminotransferase (ALT/SGPT) 22 U/L (12-78) 19 U/L (12-78) Total Bilirubin 0.5 MG/DL (0.2-1.0) 0.3 MG/DL (0.2-1.0) Sodium Level 133 MEQ/L (136-145) 135 MEQ/L (136-145) Potassium Level 4.4 MEQ/L (3.5-5.1) 4.4 MEQ/L (3.5-5.1) Chloride Level 97 MEQ/L (98-107) 100 MEQ/L (98-107) Carbon Dioxide Level 23.0 MEQ/L (21.0-32.0) 30.3 MEQ/L (21.0-32.0) Anion Gap 13 MEQ/L (5-15) 5 MEQ/L (5-15) Estimat Glomerular Filtration Rate 73 ML/MIN (>89) 126 ML/MIN (>89) Lactic Acid Level 1.3 mmol/L (0.4-2.0) Total Creatine Kinase 837 U/L (39-308) Creatine Kinase MB 7.5 NG/ML (0.5-3.6) Creatine Kinase MB % 0.9 % (0.0-4.0) Troponin I LESS THAN 0.02 NG/ML Urine Color YELLOW (YELLW/STRAW) Urine Turbidity CLEAR (CLEAR) Urine pH 5.0 (5.0-8.5) Urine Specific [place] 1.025 (1.002-1.035) Urine Protein TRACE mg/dL (NEG-TRACE) Urine Glucose (UA) NEG mg/dL (NEG) Urine Ketones 10 mg/dL (NEG) Urine Occult Blood NEG (NEG) Urine Nitrite NEG (NEG) Urine Bilirubin NEG (NEG) Urine Urobilinogen LESS THAN 2.0 MG/DL (LESS Urine Leukocyte Esterase NEG (NEG) Urine WBC 1 /hpf (0-5) Urine Hyaline Casts 5 /lpf (RARE) Urine Mucus FEW /lpf (OCC) Microscopic Urinalysis Comment CATH-CULT NOT IND Result Diagram: 05/27/1762205/27/17622 Microbiology Microbiology Date/Time Source Procedure Growth Status 05/26/17 12:15 Blood Peripheral Aerobic Blood Culture Pending Received 05/26/17 12:15 Blood Peripheral Anaerobic Blood Culture Pending Received 05/26/17 12:10 Blood Peripheral Aerobic Blood Culture Pending Received 05/26/17 12:10 Blood Peripheral Anaerobic Blood Culture Pending Received Imaging Last Impressions Head CT 05/26/17 1141 Signed Impressions: Service Date/Time: Wednesday, May 26, 2017 13:18 - CONCLUSION: 1. Il-defined 10 mm region of increased density along the medial right occipital mid convexities. Suspect intra-axial lesion rather than focal subarachnoid blood products. No significant mass effect or associated edema by CT. This is concerning for metastatic disease in this patient with history of lung CA. Recommend MRI examination for further characterization. 2. Left maxillary and ethmoid sinusitis. Kevin Boss MD Chest X-Ray 05/26/17 1141 Signed Impressions: Service Date/Time: Wednesday, May 26, 2017 12:04 - CONCLUSION: 1. Mild bibasilar atelectatic changes, right worse than left. 2. Right IJ Infuse-a- Port with the tip projecting over the central venous system. Obdulio Choi MD CT Angiography 05/26/17 0000 Signed Impressions: Service Date/Time: Wednesday, May 26, 2017 13:24 - CONCLUSION: 1. Right upper lobe spiculated mass, mediastinal and hilar adenopathy, and upper abdominal lymphadenopathy. 2. Right adrenal nodule suspicious for metastatic disease. 3. Diffuse osseous metastatic disease with destructive bony changes and spinal canal involvement with soft tissue extending into the epidural space at several levels. John Chen MD Abdomen/Pelvis CT 05/26/17 0000 Signed Impressions: Service Date/Time: Friday, May 26, 2017 13:28 - CONCLUSION: 1. Osseous metastatic disease with areas of cortical destruction and epidural extension as above. 2. Lateral adrenal nodules are suspicious for metastatic disease. 3. Bulky retroperitoneal and upper abdominal, and mesenteric adenopathy with a central irregular mesenteric mass involving the uncinate process of the pancreas and third portion of the duodenum. 4. Not mentioned above is focal clot in the right common iliac vein just proximal to the venous confluence on image 42. John Chen MD Patient/Family Conference Present at Family Conference: At my initial meeting, close friend/caregiver Haven participated by telephone. Family Conference Location: Bedside, Telephone Issues Discussed: * Palliative care role, purpose, approach * Hospice care role, purpose, approach * Additional medical, psychosocial, and spiritual history * Patients general health, functional status, and cognitive changes in the months leading up to the current hospitalization * Patient/family understanding of the current medical problems * Patient/family understanding of prognosis * Patients goals of care as best understood from advance directives and/or conversations and/or values * Current medical treatment options and benefits/burdens of those options * Likely scenarios comparing ongoing aggressive care with a transition to comfort measures only * Questions answered to the best of my ability * Palliative care contact information provided The patient feels like he wants to transition to comfort care, likely engaging hospice services, but he is wanting to wait until the meeting we have this afternoon that includes his daughter and his close friend. He does request DNR status at this time. EDIT: At the 1:30 PM meeting, daughter and friend request transition to comfort care, hospice services. . . Assessment and Plan Disease Oriented Problem List: (1) adenocarcinoma of lung, widely metastatic (2) suspected new metastatic disease to brain (3) altered mental status, secondary to metastatic disease versus sepsis (4) leukocytosis, chills, rule out sepsis (5) COPD (6) malnutrition Symptom Scale: (1) dyspnea 0-10 Scale: 2 (more dyspneic in recent days, history of COPD) (2) pain 0-10 Scale: 3 (pain in mid back, worse with movement) Pertinent Non-Medical Issues Psychosocial: , one daughter. Lives alone Spiritual: The patient reports he believes in God, but has been on affiliated with any voodoo or clergy. He does not desire manufacturing associate visits. Legal: The patient is alert and his speech is clear, but he does have some intermittent confusion. He seems to have good insight into his disease and its terminality. I believe it is reasonable for him to engage in medical decision- making on a shared basis at this time. I expect that he will not be able to participate in decision-making in the upcoming days or weeks as his debility and disease progresses. Ethical issues impacting care: None . Important Contacts Daughter: Stacey Pierce [phone] Close friend/caregiver: Cathy Ashraf [phone] . Prognosis The patient is terminal, likely with weeks to live. It seems that he is calm to debilitated to undergo chemotherapy. He is appropriate for hospice services. . Code Status: No Code Plan * DO NOT RESUSCITATE, per patient on 05/27/17 * DECISION-MAKING: The patient was alert and his speech was clear this morning when I first met with him, but he did have some intermittent confusion. He seemed to have good insight into his disease and its terminality. At that time , I thought he could, with his daughter, participate and share decision-making. However, this afternoon he is more lethargic and confused, and the decision making will be made by his daughter/healthcare proxy. * GOALS: Following the 1:30 PM meeting, the patient's daughter requests a transition to comfort care, hospice services. * Hospice consult placed. * SYMPTOMS: He has been on oral morphine, and likely will not be able to take that in the upcoming hours and days. I anticipate that he will go to a [facility] for management of his pain. * Palliative Care will continue to follow the patient during this hospitalization. . Time Spent Total Floor Time (mins): 88 Face to Face Time (mins): 44 >50% Counseling/Coord of Care: Yes (d/w Kay JUAREZ and with RN) Thank you for the opportunity to participate in the care of Mr. Pierce. Attestation To help prompt me to consider important information that might be impacting today's encounter and assessment, information from prior notes written by myself or my colleagues may have been "brought forward" into today's note. My signature on this note, however, is an attestation that I personally performed the exam, history, and/or decision-making noted today, and, unless otherwise indicated, the interactions with patient, family, and staff as well as the review of records all occurred today. I also attest that the listed assessment and stated plan reflect my best clinical judgment today based on the combination of historical information, prior notes, and today's exam/ interactions. When time spent is documented, it refers only to time spent today by the signer, or if indicated, combined time spent today by collaborating physician/nurse practitioner. Keila Stover MD May 27, 2017 10:57
[2017-05-27] MEDS ORDERED: GADODIAMIDE PF 287 MG/ML 5 ML VIAL (for RAD MRI) IVCONTRAST ONE (10:58)
--- NOTE | 2017-05-27 11:43 | RADRPT ---
EXAM DATE/TIME: 05/27/2017 10:48 [place] COMPARISON: No previous studies available for comparison. INDICATIONS : Metastatic disease. Altered mental status. CONTRAST: 13 cc Omniscan (gadodiamide) IV MEDICAL HISTORY : Carcinoma, lung. Chronic obstructive pulmonary disease. SURGICAL HISTORY : Port placement. ENCOUNTER: Subsequent ACUITY: 2 day PAIN SCORE: 0/10 LOCATION: head. Known MRI Precautions: Sedation utilized? Yes Anesthesia present? No MRI reaction? No If YES explain: Ativan TECHNIQUE: Multiplanar, multisequence MRI of the brain was performed both prior to and following the administrat ion of paramagnetic contrast. FINDINGS: Problems specific findings: Postcontrast T1 weighted images demonstrate a total of 4 enhancing lesions within the brain parenchym a. There is a 1.0 cm lesion along the anterior margin of the fourth ventricle. There is a 1 cm lesion within the cerebellar vermis. Examination of the supratentorial brain demonstrates a 1.2 x 1.3 cm ma ss in the medial aspect of the right occipital cortex. There is a 6 mm lesion identified in the poste rior temporal cortex on the right and a 4 mm lesion identified in the high right frontal cortex. Find ings would be consistent with metastatic disease to the brain. The ventricles are normal in size and configuration. No findings to indicate acute cortical infarctio n are present. No extra-axial fluid collections are seen. Note is made of fairly diffuse meningeal enhancement. This may be secondary to recent lumbar puncture . In the absence of recent lumbar puncture or peritoneal carcinomatosis cannot be excluded. The visualized portion of sinus and orbit are clear. CONCLUSION: 1. There are total of 6 enhancing lesions identified within the brain parenchyma. The largest is in t he occipital cortex on the right and measures 1.2 x 1.3 cm. The other lesions are described in detail above. Findings are consistent with metastatic disease to the brain. 2. There is diffuse meningeal enhancement. This is likely related to recent lumbar puncture. In the a bsence of recent instrumentation meningeal carcinomatosis/meningitis cannot be excluded. Lanre Skinner MD on May 27, 2017 at 11:34 Board Certified Radiologist. This report was verified electronically.
--- NOTE | 2017-05-27 12:54 | PD.ONC.PN ---
Subjective Subjective Remarks Afebrile overnight States he wants to go home with hospice Meeting with his daughter and Dr. Stover today "I don't want to in hospital" Objective Data Date Time Temp Pulse Resp B/P (MAP) Pulse Ox O2 Delivery O2 Flow Rate FiO2 05/27/17 11:30 97.5 104 20 106/68 (81) 94 05/27/17 09:10 92 Nasal Cannula 4.00 05/27/17 08:15 115 05/27/17 07:50 96.3 104 20 121/77 (92) 94 05/27/17 04:00 96.3 98 18 151/98 (115) 97 05/27/17 04:00 90 05/27/17 00:00 97 05/27/17 00:00 96.7 91 18 116/69 (85) 94 05/26/17 20:55 105 05/26/17 20:45 93 Nasal Cannula 5.00 05/26/17 20:00 97.3 98 18 124/81 (95) 96 05/26/17 19:00 129 05/26/17 17:37 97.2 117 20 113/79 (90) 88 05/26/17 16:53 05/26/17 16:45 112 16 116/66 (83) 94 Nasal Cannula 4.00 05/26/17 14:00 114 16 134/66 (88) 94 Nasal Cannula 4.00 05/26/17 13:31 120 19 126/67 (86) 96 Nasal Cannula 4.00 05/27/17 05/27/17 05/27/17 07:00 15:00 23:00 Intake Total 755 ml Output Total 300 ml 550 ml Balance 455 ml -550 ml Result Diagram: 05/27/1762205/27/17622 Laboratory Results Laboratory Tests Test 05/26/17 13:55 05/27/17 06:23 Urine Color YELLOW Urine Turbidity CLEAR Urine pH 5.0 Urine Specific [place] 1.025 Urine Protein TRACE mg/dL Urine Glucose (UA) NEG mg/dL Urine Ketones 10 mg/dL Urine Occult Blood NEG Urine Nitrite NEG Urine Bilirubin NEG Urine Urobilinogen LESS THAN 2.0 MG/DL Urine Leukocyte Esterase NEG Urine WBC 1 /hpf Urine Hyaline Casts 5 /lpf Urine Mucus FEW /lpf Microscopic Urinalysis Comment CATH-CULT NOT IND White Blood Count 9.0 TH/MM3 Red Blood Count 4.00 MIL/MM3 Hemoglobin 11.0 GM/DL Hematocrit 33.7 % Mean Corpuscular Volume 84.1 FL Mean Corpuscular Hemoglobin 27.5 PG Mean Corpuscular Hemoglobin Concent 32.7 % Red Cell Distribution Width 16.8 % Platelet Count 251 TH/MM3 Mean Platelet Volume 6.8 FL Neutrophils (%) (Auto) 89.6 % Lymphocytes (%) (Auto) 2.0 % Monocytes (%) (Auto) 8.4 % Eosinophils (%) (Auto) 0.0 % Basophils (%) (Auto) 0.0 % Neutrophils # (Auto) 8.0 TH/MM3 Lymphocytes # (Auto) 0.2 TH/MM3 Monocytes # (Auto) 0.7 TH/MM3 Eosinophils # (Auto) 0.0 TH/MM3 Basophils # (Auto) 0.0 TH/MM3 CBC Comment DIFF FINAL Differential Comment Blood Urea Nitrogen 28 MG/DL Creatinine 0.64 MG/DL Random Glucose 106 MG/DL Total Protein 6.3 GM/DL Albumin 2.0 GM/DL Calcium Level 9.2 MG/DL Magnesium Level 2.1 MG/DL Alkaline Phosphatase 104 U/L Aspartate Amino Transf (AST/SGOT) 41 U/L Alanine Aminotransferase (ALT/SGPT) 19 U/L Total Bilirubin 0.3 MG/DL Sodium Level 135 MEQ/L Potassium Level 4.4 MEQ/L Chloride Level 100 MEQ/L Carbon Dioxide Level 30.3 MEQ/L Anion Gap 5 MEQ/L Estimat Glomerular Filtration Rate 126 ML/MIN Culture Results Microbiology Date/Time Source Procedure Growth Status 05/26/17 12:15 Blood Peripheral Aerobic Blood Culture - Preliminary Gram Positive Cocci Resulted 05/26/17 12:15 Blood Peripheral Anaerobic Blood Culture - Preliminary NO GROWTH IN 1 DAY Resulted 05/26/17 12:10 Blood Peripheral Aerobic Blood Culture - Preliminary NO GROWTH IN 1 DAY Resulted 05/26/17 12:10 Blood Peripheral Anaerobic Blood Culture - Preliminary NO GROWTH IN 1 DAY Resulted Imaging Studies Last 24 hours Impressions Brain MRI 05/27/17 0000 Signed Impressions: Service Date/Time: May 10:48 - CONCLUSION: 1. There are total of 6 enhancing lesions identified within the brain parenchyma. The largest is in the occipital cortex on the right and measures 1.2 x 1.3 cm. The other lesions are described in detail above. Findings are consistent with metastatic disease to the brain. 2. There is diffuse meningeal enhancement. This is likely related to recent lumbar puncture. In the absence of recent instrumentation meningeal carcinomatosis/meningitis cannot be excluded. Lanre Skinner MD Administered Medications Medications (Trade) Dose Ordered Sig/Sarah Route PRN Reason Start Time Stop Time Status Last Admin Dose Admin Albuterol/ Ipratropium (Duoneb Neb) 1 ampule Q4HR NEB NEB 05/26/17 16:00 05/27/17 09:09 Amitriptyline HCl (Elavil) 50 mg HS PO 05/26/17 21:00 05/26/17 22:27 Morphine Sulfate (Oramorph Sr) 15 mg Q12HR PO 05/26/17 21:00 05/27/17 08:39 Potassium Chloride 10 meq/ Sodium Chloride 1,005 ml @ 80 mls/hr [id number] IV 05/26/17 15:00 05/26/17 16:39 Objective Remarks GENERAL: Older male, resting in bed in no acute distress SKIN: Warm and dry. HEAD: Normocephalic. EYES: No injection or drainage. NECK: Supple, trachea midline. CARDIOVASCULAR: + S1/S2. No murmur noted. RESPIRATORY: Breath sounds somewhat diminished. Breathing appears unlabored at rest. GASTROINTESTINAL: Abdomen soft, non-tender, nondistended. EXTREMITIES: No cyanosis NEUROLOGICAL: Normal speech. Moving all extremities. Confused at times. Assessment/Plan Problem List: (1) adenocarcinoma of lung, widely metastatic Plan: -- MRI of brain today showed a total of 6 enhancing lesions characteristic of metastatic disease. -- Palliative care to have meeting with patient's daughter today to discuss goals of care Hx/Workup: [id number] smoking history. The patient experienced back pain beginning in November. He had a CT scan that showed a right basilar lobe mass. He was found to have diffuse adenopathy thorax and abdomen. Biopsy showed metastatic adenocarcinoma. He is currently receiving palliative radiation and was arranged to begin chemotherapy this week. Unfortunately he developed confusion and was brought to the emergency room Assessment 67 y/o male with metastatic adenocarcinoma admitted for confusion Plan 1. MRI of the brain today showed 6 enhancing lesions characteristic of metastatic disease. 2. Palliative care is having a meeting with the patient and his daughter today to discuss goals of care. 3. Unfortunately with the widespread metastatic disease there is little to offer from our standpoint. 4. If he were to get stronger than we could start chemotherapy but this is unlikely given that the disease has progressed to the brain. Hospice would be appropriate for this patient. Attending Statement The exam, history, and the medical decision-making described in the above note were completed with the assistance of the mid-level provider. I reviewed and agree with the findings presented. I attest that I had a [id number] encounter with the patient on the same day, and personally performed and documented my assessment and findings in the medical record. I saw pt this morning. He has intermittent confusion but still able to participate in discussion. He is very anxious when we started discussing his poor prognosis and hospice care. I talked to his best friend Cathy on the phone. He told me pt 's daughter will be coming to the hospital this afternoon. When I saw him, MRI was not done yet. 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 He has poor performance status and I would recommend transition to hospice care. Appreciate palliative care meds assistance. Pam Quiroz May 27, 2017 12:54 Davion Bingham MD May 27, 2017 18:06
[2017-05-27] MEDS: POTASSIUM CHLORIDE INJ 10 MEQ in SODIUM CHLOR 0.9% 1000 ML INJ 1,000 ML IV SCH (14:26)
[2017-05-28] MEDS ORDERED: PHARMACY ORDERED LAB ONE (05:45)
== END 2017-05-27 18:52 | disposition hospice, inpatient (51) | DRG 55 ==
LOC: NEPE 11:11 → NEDA 14:03 → HOCB 17:08
PROVIDERS: ADMIT Hospitalist; ATTEND Hospitalist
DX: C79.31 Secondary malignant neoplasm of brain (principal); I82.421 Acute embolism and thrombosis of right iliac vein; E46 Unspecified protein-calorie malnutrition; C78.1 Secondary malignant neoplasm of mediastinum; C34.11 Malignant neoplasm of upper lobe, right bronchus or lung; J44.9 Chronic obstructive pulmonary disease, unspecified; C79.51 Secondary malignant neoplasm of bone; C79.70 Secondary malignant neoplasm of unspecified adrenal gland; G89.3 Neoplasm related pain (acute) (chronic); Z66 Do not resuscitate; R41.82 Altered mental status, unspecified; F17.210 Nicotine dependence, cigarettes, uncomplicated; Z92.3 Personal history of irradiation; Z99.81 Dependence on supplemental oxygen
CPT/HCPCS: 70450; 70553; 71010; 71275; 74177; 77412; 80053; 81001; 82550; 82552; 83605; 83735; 84484; 85025; 85610; 85730; 87040; 87205; 93005; 94640; 94664; 96360; A9579; J0692; J1100; J2060; J3370; J3480; J7030; J7040; P9612; Q9967